=== PATIENT | female | born 1955 | race Caucasian/White ===

== ENCOUNTER 2017-03-31 15:04 | Inpatient (IN) | payer OTHER, MEDICAID ==
[2017-03-31] MEDS ORDERED: NS 1,000 ML IV ONE (15:18)
--- NOTE | 2017-03-31 15:41 | CPEKG ---
Heart Rate: 93 RR Interval: 645 P-R Interval: 140 QRSD Interval: 114 QT Interval: 368 QTC Interval: 458 P [place]: 78 QRS [place]: 113 T Wave [place]: -1 EKG Severity - ABNORMAL ECG - EKG Impression: SINUS RHYTHM EKG Impression: PROBABLE LEFT ATRIAL ABNORMALITY EKG Impression: NONSPECIFIC INTRAVENTRICULAR CONDUCTION DELAY EKG Impression: MINIMAL ST DEPRESSION Electronically Signed By: Lupillo Pa 02-Apr-2017 12:52:01
--- NOTE | 2017-03-31 15:44 | EDPHY ---
HPI/HX/ROS/PE/MDM Narrative: CHIEF COMPLAINT: Abnormal EKG, hypoxia HPI: The patient is a 61-year-old female with a history of developmental delay. She was since the emergency department after being evaluated at [facility] just prior to arrival. History is somewhat limited from the patient secondary to her developmental delay. History is primarily obtained from her spinning mule tender who states that the patient was hospitalized before [place] [facility] for pneumonia. Since that time she has had episodes of hypoxia which her primary physician has struggled to diagnose. She was referred to Cardiology for further workup. At the cardiology clinic, the patient was apparently noted to have oxygen level on room air in the 70s and abnormal EKG. She was then transferred directly to the hospital. No apparent recent trauma or fever. REVIEW OF SYSTEMS: Aside from elements discussed in the HPI, a comprehensive 10-point review of systems was reviewed and is negative. This is obtained primarily from caregiver. PMH: Includes developmental delay, recent pneumonia. No known heart disease. SOCIAL HISTORY: Lives in a host at home. Disabled. PHYSICAL EXAM: General:Patient is alert, in no acute distress. She appears somewhat pale. ENT:Eyes are normal to inspection. ENT inspection normal. Neck: Normal inspection. Full range of motion. Respiratory:No respiratory distress. Breath sounds normal bilaterally. Cardiovascular: Tachycardic rate with a possible S3 or murmur. Strong peripheral pulses. Abdomen:The abdomen is nontender to palpation. There are no peritoneal signs. There are normal bowel sounds. Back: Normal to inspection. No tenderness to palpation. Skin: Normal color. No rash. Warm and dry. Extremities: Normal appearance. Full range of motion. Neuro: Normal motor function. Normal sensory function. ED Course: EKG reveals normal sinus rhythm with T-wave inversions throughout the precordium and mild diffuse ST depression. Initial IV was attempted but was unsuccessful. Patient then refused any further attempts or testing. Nursing staff made multiple attempts to contact [facility], and finally reached her, who gave verbal permission to the nurse for us to treat the patient, even against the patient's will. 1700: Another attempt by nurse to draw blood was made, and patient refused. Given that her BP is currently stable, we will give her 1mg PO ativan and re- attempt. If this fails, we will likely have to restrain patient to get blood and IV as I am concerned regarding possible serious etiologies of her presentation, including possible severe anemia. 1905: Spoke with hospitalist service. Dr. Perez accepts admission. MDM: This patient presents with symptomatic anemia, hypoxia and an abnormal ECG. The patient's history is somewhat difficult to obtain and at this point I do not have a unifying diagnosis. Clearly she requires admission to the hospital for further workup and treatment. - Data Points Imaging Results: Imaging Impressions Chest X-Ray 03/31/17 15:42 Impression: 1. Large hiatal hernia. 2. Patchy infiltrate suspected mid to lower lungs small effusions. Consider mild fluid overload/CHF versus possibility of pneumonia.. Laboratory Results: Laboratory Results 03/31/17 18:00 03/31/17 18:00 03/31/17 03/31/17 03/31/17 18:00 18:00 18:00 WBC RBC Hgb Hct MCV MCH MCHC RDW Plt Count MPV Neut % (Auto) Lymph % (Auto) [place] % (Auto) Eos % (Auto) Baso % (Auto) Nucleat RBC Rel Count Absolute Neuts (auto) Absolute Lymphs (auto) Absolute Monos (auto) Absolute Eos (auto) Absolute Basos (auto) Absolute Nucleated RBC Immature Gran % Immature Gran # PT INR APTT Sodium 142 mEq/L mEq/L (135-145) Potassium 4.7 mEq/L mEq/L (3.5-5.2) Chloride 104 mEq/L mEq/L (97-110) Carbon Dioxide 22 mEq/l mEq/l (22-31) Anion Gap 16 mEq/L mEq/L (8-16) BUN 13 mg/dL mg/dL (7-23) Creatinine 0.9 mg/dL mg/dL (0.6-1.0) Estimated GFR > 60 Glucose 119 mg/dL H mg/dL (70-100) Calcium 9.7 mg/dL mg/dL (8.5-10.4) Troponin I 0.015 ng/mL ng/mL (0.000-0.034) NT-Pro-B Natriuret Pep 4550 pg/mL H pg/mL (0-125) Patient ABO/Rh Pending Antibody Screen Pending 03/31/17 03/31/17 18:00 18:00 WBC 8.69 10^3/uL 10^3/uL (3.80-9.50) RBC 3.02 10^6/uL L 10^6/uL (4.18-5.33) Hgb 7.4 g/dL L g/dL (12.6-16.3) Hct 25.4 % L % (38.0-47.0) MCV 84.1 fL fL (81.5-99.8) MCH 24.5 pg L pg (27.9-34.1) MCHC 29.1 g/dL L g/dL (32.4-36.7) RDW 19.3 % H % (11.5-15.2) Plt Count 305 10^3/uL 10^3/uL (150-400) MPV 10.9 fL fL (8.7-11.7) Neut % (Auto) 69.5 % % (39.3-74.2) Lymph % (Auto) 16.2 % % (15.0-45.0) [place] % (Auto) 12.3 % % (4.5-13.0) Eos % (Auto) 0.9 % % (0.6-7.6) Baso % (Auto) 0.8 % % (0.3-1.7) Nucleat RBC Rel Count 0.0 % % (0.0-0.2) Absolute Neuts (auto) 6.03 10^3/uL 10^3/uL (1.70-6.50) Absolute Lymphs (auto) 1.41 10^3/uL 10^3/uL (1.00-3.00) Absolute Monos (auto) 1.07 10^3/uL H 10^3/uL (0.30-0.80) Absolute Eos (auto) 0.08 10^3/uL 10^3/uL (0.03-0.40) Absolute Basos (auto) 0.07 10^3/uL 10^3/uL (0.02-0.10) Absolute Nucleated RBC 0.00 10^3/uL 10^3/uL (0-0.01) Immature Gran % 0.3 % % (0.0-1.1) Immature Gran # 0.03 10^3/uL 10^3/uL (0.00-0.10) PT 13.7 SEC SEC (12.0-15.0) INR 1.03 (0.83-1.16) APTT Pending Sodium Potassium Chloride Carbon Dioxide Anion Gap BUN Creatinine Estimated GFR Glucose Calcium Troponin I NT-Pro-B Natriuret Pep Patient ABO/Rh Antibody Screen Medications Given: Discontinued Medications Sodium Chloride (Ns) 1,000 mls @ 0 mls/hr IV EDNOW ONE; Wide Open PRN Reason: Protocol Stop: 03/31/17 15:19 Last Admin: 03/31/17 18:13 Dose: 1,000 mls Lorazepam (Ativan) 1 mg PO EDNOW ONE Stop: 03/31/17 17:08 Last Admin: 03/31/17 17:11 Dose: 1 mg General Time Seen by Provider: 03/31/17 15:11 Initial Vital Signs: Initial Vital Signs Temperature (C) 37.2 C 03/31/17 15:12 Heart Rate 86 03/31/17 15:12 Respiratory Rate 20 03/31/17 15:12 Blood Pressure 121/86 H 03/31/17 15:12 O2 Sat (%) 92 03/31/17 15:12 O2 Delivery Mode Room Air O2 (L/minute) 2 Allergies/Adverse Reactions: No Known Allergies Allergy (Unverified 03/31/17 15:08) Home Medications: Medication Instructions Recorded Aspirin [Aspirin 81mg (*)] 81 mg PO DAILY 03/31/17 Docusate Sodium [Colace 100 MG (*)] 100 mg PO BID 03/31/17 Gabapentin [Neurontin 400 MG (*)] 400 mg PO TID 03/31/17 Multivitamins [Multivitamin (*)] 1 each PO DAILY 03/31/17 OLANZapine [Zyprexa] 15 mg PO HS 03/31/17 OXcarbazepine [Trileptal 300mg (*)] 300 mg PO TID 03/31/17 QUEtiapine FUMARATE [Seroquel 200 200 mg PO HS 03/31/17 mg (*)] Ranitidine HCl 150 mg PO BID 03/31/17 Departure - Departure Disposition: [facility] Clinical Impression: Hypoxemia Anemia Qualifiers: Anemia type: other cause Other causes of anemia: other cause, not classified Qualified Code(s): D64.89 - Other specified anemias Condition: Fair
[2017-03-31] MEDS ORDERED: LORazepam 1 MG TAB ONE (17:07)
[2017-03-31] MEDS ORDERED: LORazepam 1 MG TAB PO ONE (17:07)
[2017-03-31 18:18] LABS: PLATELET COUNT 305 10^3/uL (150-400)
[2017-03-31 18:27] LABS: INR 1.03 (0.83-1.16); PROTIME(PATIENT) 13.7 SEC (12.0-15.0)
[2017-03-31] MEDS ORDERED: ASPIRIN 325 MG TAB PO ONE (19:37)
[2017-03-31] MEDS ORDERED: ALBUTEROL 3 ML DEYVIAL IH PRN (19:41)
[2017-03-31] MEDS ORDERED: ACETAMINOPHEN 325 MG TAB PO PRN (19:41)
[2017-03-31] MEDS ORDERED: ONDANSETRON DISINTEGRATING 4 MG TAB PO PRN (19:41)
[2017-03-31] MEDS ORDERED: ONDANSETRON 4 MG/2 ML VIAL IVP PRN (19:41)
[2017-03-31] MEDS ORDERED: FUROSEMIDE 20 MG/2 ML VIAL IVP ONE (21:11)
--- NOTE | 2017-03-31 21:17 | PDGENHP ---
History and Physical - Chief Complaint abnormal EKG - History of Present Illness 61 yo female with DD was seen for initial encounter at [facility] today for hypoxemia following recent hospitalization ([place]) at another hospital for pneumonia. History is limited as the patient is a poor historian and therefore hx is obtained from the medical records and from the photographic technician of the facility where she is residing. apparently she has been hypoxic since leaving [place] several weeks ago but they have not been able to set her up with home O2. She is currently needing 2 L. As part of her w/u she was sent to [facility] to r/ o CV etiology as she also reports intermittent leg edema. A CXR todays showed ST depression in the anterior lateral leads. She denies chest pain or discomfort , arm pain, neck pain, or jaw/face numbness. A troponin was unremarkable. There are no previous records for comparison. It is unclear if she was given an aspirin at [facility], she did not get one here. Hgb was also found to be decreased. VSS she does not have hypotension or tachycardia PMHx: DDD PSHx: unknown SHx: negative tobacco or ETOH or illicits FmHx: unknown lab/data: Hgb 7.4, MCV 84 BNP 4550 CXR mild fluid overload trop: unremarkable BMP unremarkable History Information - Allergies/Home Medication List Allergies/Adverse Reactions: No Known Allergies Allergy (Unverified 03/31/17 15:08) Home Medications: Aspirin [Aspirin 81mg (*)] 81 mg PO DAILY 03/31/17 [Last Taken 03/31/17] Docusate Sodium [Colace 100 MG (*)] 100 mg PO BID 03/31/17 [Last Taken 03/31/17] Gabapentin [Neurontin 400 MG (*)] 400 mg PO TID 03/31/17 [Last Taken 03/31/17 19 :00] Multivitamins [Multivitamin (*)] 1 each PO DAILY 03/31/17 [Last Taken 03/31/17] OLANZapine [Zyprexa] 15 mg PO HS 03/31/17 [Last Taken 03/31/17] OXcarbazepine [Trileptal 300mg (*)] 300 mg PO TID 03/31/17 [Last Taken 03/31/17 19:00] QUEtiapine FUMARATE [Seroquel 200 mg (*)] 200 mg PO HS 03/31/17 [Last Taken ] Ranitidine HCl 150 mg PO BID 03/31/17 [Last Taken 03/31/17 19:00] I have personally reviewed and updated: medical history, social history - Social History Smoking Status: Never smoked Review of Systems Review of Systems: ROS: 10pt was reviewed & negative except for what was stated in HPI & below Physical Exam Physical Exam: Temp Pulse Resp BP Pulse Ox 37.2 C 84 20 105/65 100 03/31/17 15:12 03/31/17 19:44 03/31/17 19:44 03/31/17 19:44 03/31/17 19:44 O2 (L/minute) 2 Constitutional: no apparent distress, appears nourished Eyes: PERRL Ears, Nose, Mouth, Throat: moist mucous membranes, hearing normal Cardiovascular: regular rate and rhythym, systolic murmur, edema (trace), No JVD Respiratory: no respiratory distress, rhonchi Gastrointestinal: normoactive bowel sounds, soft, non-tender abdomen, no palpable masses Genitourinary: no bladder fullness Skin: warm Musculoskeletal: generalized weakness Neurologic: No AAOx3 Psychiatric: interacting appropriately, encephalopathic, No not anxious Lymph, Heme, Immunologic: No petechiae Lab Data & Imaging Review 03/31/17 18:00 03/31/17 18:00 WBC 8.69 10^3/uL (3.80-9.50) 03/31/17 18:00 RBC 3.02 10^6/uL (4.18-5.33) L 03/31/17 18:00 Hgb 7.4 g/dL (12.6-16.3) L 03/31/17 18:00 POC Hgb 5.4 gm/dL (12.6-16.3) L* 03/31/17 15:50 Hct 25.4 % (38.0-47.0) L 03/31/17 18:00 POC Hct 16 % (38-47) L* 03/31/17 15:50 MCV 84.1 fL (81.5-99.8) 03/31/17 18:00 MCH 24.5 pg (27.9-34.1) L 03/31/17 18:00 MCHC 29.1 g/dL (32.4-36.7) L 03/31/17 18:00 RDW 19.3 % (11.5-15.2) H 03/31/17 18:00 Plt Count 305 10^3/uL (150-400) 03/31/17 18:00 MPV 10.9 fL (8.7-11.7) 03/31/17 18:00 Neut % (Auto) 69.5 % (39.3-74.2) 03/31/17 18:00 Lymph % (Auto) 16.2 % (15.0-45.0) 03/31/17 18:00 [place] % (Auto) 12.3 % (4.5-13.0) 03/31/17 18:00 Eos % (Auto) 0.9 % (0.6-7.6) 03/31/17 18:00 Baso % (Auto) 0.8 % (0.3-1.7) 03/31/17 18:00 Nucleat RBC Rel Count 0.0 % (0.0-0.2) 03/31/17 18:00 Absolute Neuts (auto) 6.03 10^3/uL (1.70-6.50) 03/31/17 18:00 Absolute Lymphs (auto) 1.41 10^3/uL (1.00-3.00) 03/31/17 18:00 Absolute Monos (auto) 1.07 10^3/uL (0.30-0.80) H 03/31/17 18:00 Absolute Eos (auto) 0.08 10^3/uL (0.03-0.40) 03/31/17 18:00 Absolute Basos (auto) 0.07 10^3/uL (0.02-0.10) 03/31/17 18:00 Absolute Nucleated RBC 0.00 10^3/uL (0-0.01) 03/31/17 18:00 Immature Gran % 0.3 % (0.0-1.1) 03/31/17 18:00 Immature Gran # 0.03 10^3/uL (0.00-0.10) 03/31/17 18:00 PT 13.7 SEC (12.0-15.0) 03/31/17 18:00 INR 1.03 (0.83-1.16) 03/31/17 18:00 APTT 20.0 SEC (23.0-38.0) L 03/31/17 18:00 POC Sodium 144 mEq/L (135-145) 03/31/17 15:50 Sodium 142 mEq/L (135-145) 03/31/17 18:00 POC Potassium 3.6 mEq/L (3.3-5.0) 03/31/17 15:50 Potassium 4.7 mEq/L (3.5-5.2) 03/31/17 18:00 POC Chloride 99 mEq/L (97-110) 03/31/17 15:50 Chloride 104 mEq/L (97-110) 03/31/17 18:00 Carbon Dioxide 22 mEq/l (22-31) 03/31/17 18:00 Anion Gap 16 mEq/L (8-16) 03/31/17 18:00 POC BUN 10 mg/dL (7-23) 03/31/17 15:50 BUN 13 mg/dL (7-23) 03/31/17 18:00 Creatinine 0.9 mg/dL (0.6-1.0) 03/31/17 18:00 POC Creatinine 0.7 mg/dL (0.6-1.0) 03/31/17 15:50 Estimated GFR > 60 03/31/17 18:00 Glucose 119 mg/dL (70-100) H 03/31/17 18:00 POC Glucose 91 mg/dL (70-100) 03/31/17 15:50 Calcium 9.7 mg/dL (8.5-10.4) 03/31/17 18:00 Troponin I 0.015 ng/mL (0.000-0.034) 03/31/17 18:00 NT-Pro-B Natriuret Pep 4550 pg/mL (0-125) H 03/31/17 18:00 Procalcitonin 0.05 ng/mL (0.02-0.10) 03/31/17 18:00 Patient ABO/Rh A NEGATIVE 03/31/17 18:00 Antibody Screen NEGATIVE 03/31/17 18:00 Assessment & Plan Assessment: #Hypoxemia and OSBORN #abnormal EKG with no cp and unremarkable EKG #?CHF with mild exacerbation #Anemia, normocytic, likely not acute, no reported melena #DD Plan: Admit PCU Lasix x 1 TTE Telemetry Serial trops Resp panel Full dose aspirin now, cont daily aspirin Check for risk factors It is unclear if Cards is following. We will need to contact them in the a.m.. Thus far she does not have any chest pain and trops are negative. M anemia w/u SCDs Full code
[2017-04-01] MEDS: QUEtiapine FUMARATE 200 MG TAB PO SCH ×2 (00:48→20:46)
[2017-04-01] MEDS: DOCUSATE SODIUM 100 MG CAP PO SCH ×3 (00:48→20:57)
[2017-04-01] MEDS: FAMOTIDINE 20 MG TAB PO SCH ×3 (00:48→20:58)
[2017-04-01] MEDS: GABAPENTIN 400 MG CAP PO SCH ×4 (00:49→20:46)
[2017-04-01] MEDS: OXcarbazepine 300 MG TAB PO SCH ×4 (00:49→20:46)
[2017-04-01 05:35] LABS: PLATELET COUNT 284 10^3/uL (150-400)
[2017-04-01] MEDS: MULTIVITAMINS 1 EACH TAB PO SCH (09:56)
[2017-04-01] MEDS: ASPIRIN 81 MG CHEWABLE TAB PO SCH (09:56)
[2017-04-01] MEDS ORDERED: SODIUM FERRIC GLUCONAT/SUCROSE 125 MG in NS 100 ML IV ONE (11:15)
--- NOTE | 2017-04-01 11:44 | ECHO ---
[email or web address] [address] Main: [phone] Fax: Transthoracic Echocardiogram Name: DERRELL MELTON MR#: [id number] Study Date: 04/01/2017 Study Time: 09:28 AM Date of : 1955 Age: 61 year(s) Height: 154.9 cm (61 in.) Weight: 65.77 kg (145 lb.) BSA: 1.65 m2 Gender: Female Examination: Echo Indication: abnormal ecg Image Quality: Adequate Contrast: Requested by: Alessandro Perez BP: 133 mmHg/92 mmHg Heart Rate: Rhythm: Normal sinus rhythm Indication: abnormal ecg Procedure Staff Medical Library Assistant: Cheyenne Salguero [facility] Reading Physician: Lupillo Allen Requesting Provider: Conclusions: Normal size left ventricle. Borderline concentric LV hypertrophy. EF is 74 %. Mildly dilated right ventricle. Mildly reduced RV function. The mitral valve is normal in appearance and function. Trivial mitral valve regurgitation. The aortic valve is normal in appearance and function. Right ventricular systolic pressure measures 53mmHg. No old studies for comparison. Measurements: Chambers Valvular Assessment AV/MV Valvular Assessment TV/PV Normal Normal Normal Name Value Range Name Value Range Name Value Range IVSd (2D): 1.0 cm (0.6 cm-1.1 AV Vmax: 1.69 m/s (1 m/s-1.7 TR Vmax: 3.47 mm/s ( - ) cm) m/s) TR PGmax: 48 mmHg ( - ) LVDd (2D): 4.1 cm (3.9 cm-5.3 AV maxP mmHg ( - ) syst. PAP: 53 mmHg ( - ) cm) LVOT Vmax: 1.30 m/s (0.7 m/s-1.1 PV Vmax: 1.10 m/s (0.6 m/s-0.9 LVDs (2D): 2.9 cm (2.1 cm-4 m/s) m/s) cm) MV E Vmax: 0.72 m/s ( - ) PV PGmax: 5 mmHg ( - ) LVPWd (2D): 1.0 cm ( - ) MV A Vmax: 1.04 m/s ( - ) LVEF (BP): 74 % (>=55 %) MV E/A: 0.69 ( - ) RVDd(2D): 4.0 cm (1.9 cm-3.8 cmmm) Continued Measurements: Chambers Valvular Assessment AV/MV Valvular Assessment TV/PV Patient: DERRELL MELTON Study Date: 04/01/2017 Page 1 of 2 09:28 AM Name Value Name Value Name Value LADs Lon.5 cm MV DecTime: 303 m/s CVP (est.): 5 mmHg LA Area: 17.9 cm2 MV E' Septal: 0.06 m/s LA Volume: 39 ml MV E/E' Septal: 11.30 LA Volume Index: 23.6 ml/m2 MV E/E' Lateral: 5.60 TAPSE: 1.6 cm Additional Vessels Name Value Ao Ascendin.1 cm Findings: Left Ventricle: Normal size left ventricle. Borderline concentric LV hypertrophy. Normal global systolic LV function. EF is 74 %. There is paradoxic septal motion suggestive of bundle branch block, paced cardiac rhythm, or prior cardiac surgery. Normal diastolic LV function. Right Ventricle: Mildly dilated right ventricle. Mildly reduced RV function. Left Atrium: The left atrium is normal in size. Right Atrium: The right atrium is normal in size. Mitral Valve: The mitral valve is normal in appearance and function. Trivial mitral valve regurgitation. No mitral stenosis is present. Aortic Valve: The aortic valve is normal in appearance and function. There is no significant aortic valve regurgitation. No aortic valve stenosis is present. Tricuspid Valve: The tricuspid valve is normal in appearance and function. Mild tricuspid regurgitation is present. Right ventricular systolic pressure measures 53mmHg. The pulmonary artery pressure is moderately increased. Pulmonic Valve: The pulmonic valve is normal in appearance and function. Trivial to mild pulmonic valve regurgitation. Aorta: The aorta is normal. Normal size ascending aorta measuring 3.1 cm. IVC: The IVC is normal sized. Pericardium: No pericardial effusion. (No Signature Object) Patient: DERRELL MELTON Study Date: 04/01/2017 Page 2 of 2 09:28 AM [id number]
--- NOTE | 2017-04-01 14:33 | HOSPPROG ---
Hospitalist Progress Note Assessment/Plan: DIAGNOSES: -severe symptomatic anemia with severe iron deficiency, unknown chronicity but significant decrease in hemoglobin overnight here; strongly suggest GI malignancy or other GI lesion -acute hypoxemic respiratory failure -left-sided pleural effusion -severe pulmonary hypertension and 50s; reportedly no smoking or previous lung history, wonder if she could potentially have a PE; no valvular cause identified on echocardiogram; chest rate does not look like COPD -recent pneumonia diagnosed at another hospital and treated there discharge 2 weeks ago -history of hip fracture and therefore osteoporosis is suspected -developmental delay is suspected but no specific information available, patient lives in a host home -patient apparently has a POA but the patient states that this woman is not welcome in her room and is not on speaking terms with this person Initially the patient was very adamant that she is going to leave the hospital and does not want any further care here including any new medications, any transfusions, any further diagnostic assessment. She is quite anxious and it appears this is in part due to her developmental delay and for most likely underlying anxiety disorder. I did discuss with her her situation in detail and carefully reviewed that she actually has significant risks and a potentially life-threatening situation at this time. I did review with her that particularly with a decreasing hemoglobin at 6 and respiratory failure she is at risk for severe acute complications including potentially . I did review with her as well that she has pulmonary hypertension that severe we do not have a cause for this identified yet. I let the patient think about these things for a while and left her upon to them on her own. I did come back and review with her later and the patient's is now amenable to transfusion and would like us to treat her aggressively at this point. She is accepting some IV iron She would like us to discuss this with her family and help her discuss with her family and will do of thing we can. I did introduce her to our case supervisor who will can be of assistance. In addition will need to find more out about her POA and why she is not wanting the POA to be involved at this point. It may be that we need to have her get a different POA or somehow name a different surrogate decision maker. I reviewed the patient's condition and care plan in detail today with Dr. Roly Lehman and Dr. Jonathan Perez PLANS: -the patient is now agreeing to 1 U of red blood cell transfusion I have ordered that, I spoke suspect she will need more -proton pump inhibitors added -I have also ordered some iron IV -I have asked Dr. Roly Lehman to see the patient for endoscopic evaluation -continue respiratory support -will further discuss with her getting a CT pulmonary angiogram to assess for possible pulmonary emboli as cause of pulmonary hypertension -will try and get records from previous hospitals to get better information about her past illnesses SUBJECTIVE: Patient still with some dyspnea OBJECTIVE Vitals reviewed: House Carpenter Helper, my review: Exam: alert oriented skin warm dry color ok resps not labored lungs clear BSs heart regular abd soft nondistended nontender, bowel sounds present limbs warm, no edema iv site ok Labs reviewed in detail. She is severely iron deficient and more severely anemic than yesterday. She does not have a coagulopathy Objective: Vital Signs Temp Pulse Resp BP Pulse Ox 36.9 C 80 20 105/58 L 95 04/01/17 11:55 04/01/17 11:55 04/01/17 11:55 04/01/17 11:55 04/01/17 11:55 Microbiology 04/01/17 03:15 Respiratory Panel (PCR) - Final Nasal, Sinus - Swab No Organism Detected Laboratory Results 04/01/17 04:40 04/01/17 04:40 03/31/17 04/01/17 04/02/17 06:59 06:59 06:59 Intake Total 600 120 Output Total 1150 550 Balance -550 -430 PT 13.7 SEC (12.0-15.0) 03/31/17 18:00 INR 1.03 (0.83-1.16) 03/31/17 18:00 - Time Spent With Patient Time Spent with Patient: greater than 35 minutes Time Spent with Patient: Greater than 35 minutes spent on this patients care, greater than 50% of time spent counseling, educating, and coordinating care regarding the above mentioned plan. ICD10 Worksheet Patient Problems: Problems Problem Status Onset Anemia Acute Hypoxemia Acute
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
--- NOTE | 2017-04-01 17:33 | GCON ---
[f rep st] CONSULTATION GASTROINTESTINAL INPATIENT CONSULTATION DATE OF CONSULTATION: 04/01/2017 I was kindly requested to see the patient by Dr. Scottie Sanchez in consultation for a chief complaint of anemia. HISTORY OF PRESENT ILLNESS: She is a 61-year-old white female, who was admitted to the hospital with mild heart failure. She was found to have a hemoglobin of 6.5 and hematocrit 22.4%. She states she has been anemic since age 15. She denies melena. She denies bright red blood per rectum. She denies maroon stool. She denies any recent surgery. For the most part, she denies diarrhea. She is a somewhat poor historian. She underwent colonoscopy 4 years ago, according to the patient. She states some benign polyps were removed. She had nausea with the sedation, and states "I will never do that again." PAST MEDICAL HISTORY: 1. As above. 2. Apparent recent pneumonia at [facility][1]. 3. Psychiatric disorder. 4. Otherwise, noncontributory. INPATIENT MEDICATIONS: Include Trileptal, olanzapine, Seroquel, Neurontin, aspirin. ALLERGIES: No known drug allergies. SOCIAL HISTORY: She denies tobacco use. FAMILY HISTORY: Negative for similar anemia. REVIEW OF SYSTEMS: Positive pertinent review of systems as per my HPI. Otherwise, complete review of systems is negative. PHYSICAL EXAM: CONSTITUTIONAL: Chronically ill-appearing woman. VITAL SIGNS: Stable. SKIN: Warm, dry. EYES: Pupils equal, round, reactive to light and accommodation. EAR, NOSE, MOUTH AND THROAT: Oropharynx without masses, moist mucosa. CARDIOVASCULAR: Normal S2, normal PMI. RESPIRATORY: Lungs clear to auscultation and percussion anteriorly. GASTROINTESTINAL: Abdomen soft, nontender. NEUROLOGIC: Grossly nonfocal, with cranial nerves grossly intact. PSYCHIATRIC: Alert. Appears schizophrenic. MUSCULOSKELETAL: Strength grossly normal throughout, normal station. LABORATORIES: Include the above. Normal basic metabolic panel. Normal coags. Iron saturation 4% with a normal ferritin. Normal TSH. Normal folate, B12. MCV 83. ASSESSMENT: Anemia, somewhat profound, with a low iron saturation. Otherwise, normal MCV, normal ferritin. Certainly, a gastrointestinal source is possible, such as stomach cancer, peptic ulcer disease, arteriovenous malformation, colon cancer, etc. PLAN: 1. I discussed with her and her home caregiver, pursuing upper endoscopy and colonoscopy. I reassured her that it would be unlikely for her to get nausea from the particular sedation we would use. All of her questions were answered. However, despite the above, she does not wish to proceed. She understands the risks of her decision, such as missing a colon cancer, etc. 2. Otherwise, further management, such as IV iron, blood transfusion, oral iron , etc., as per the hospitalist service. I will sign off. Please contact me in the future, if the patient changes her mind, and wishes to proceed with the above. Otherwise, thank you for allowing me to help in the management of the patient. /[id number]/MODL MTDD
[2017-04-01] MEDS: OLANZapine 10 MG TAB PO SCH (20:46)
--- NOTE | 2017-04-01 21:38 | GCON ---
[f rep st] CONSULTATION CARDIOLOGY CONSULTATION DATE OF CONSULTATION: 04/01/2017 HISTORY OF PRESENT ILLNESS: The patient is a pleasant 61-year-old female with a known history of schizophrenia, cerebral palsy, who was recently hospitalized at [facility] for pneumonia. Apparently, she refused initial treatment with antibiotics secondary to the fact that she did not want to take pills. She ultimately was agreeable for medical therapy. She reports that she did complete a course of antibiotics but felt that they were not helpful. She states she had ultimately presented to [facility] because she had an increasing cough that became more bothersome, that had been present for 2 months prior to her hospitalization. She has no known history of underlying lung disease. She has been a lifelong nonsmoker. She was ultimately discharged from [facility] and was seen at her family physician at [facility]. She was referred to [facility] for further evaluation of an abnormal ECG with T-wave inversions reported. She was seen on March 31, 2017, at [facility] by Nanci Rodriguez PA-C. Her ECG was notable for a sinus rhythm with right bundle branch block and T-wave inversions in the right precordial leads in V1 through V4. No previous ECG for comparison. She was found to be hypoxic on room air with an oxygen saturation of 76%, prompting her presentation to [facility] where she was admitted. She did undergo complete 2D echocardiogram earlier today demonstrating normal left ventricular size and function. Her right ventricular cavity was dilated with mildly reduced right ventricular function, with moderate pulmonary hypertension with RV systolic pressure of 53 mmHg. Of note, she was also found to be markedly anemic with a hemoglobin of 6.5 and hematocrit of 22.5. BNP is elevated at 4580. Chest x-ray demonstrated potential infiltrate with small effusions versus pneumonia. Currently, at the time of my exam, she is resting comfortably. She is rather anxious. She states she no longer wants to stay in the hospital, is looking forward to leaving and ultimately returning to [place]. PAST MEDICAL HISTORY: As stated above. MEDICATIONS ON ADMISSION: Include aspirin, docusate, gabapentin 400 mg 1 tablet t.i.d., olanzapine 50 mg daily, ProAir 90 mcg 1 puff q.4-6 hours. She is also on quetiapine 200 mg extended release once b.i.d., and ranitidine 150 mg daily. ALLERGIES TO MEDICATIONS: None. FAMILY HISTORY: No significant family history of premature coronary artery disease. SOCIAL HISTORY: She currently lives with a process improvement manager in [place]. She is anxious to return to [place]. She is a lifelong nonsmoker. She does not use illicit drugs. She does not drink alcohol. PHYSICAL EXAMINATION: VITAL SIGNS: Blood pressure 105/58, heart rate 80, oxygen saturation 95% on room air, respiratory rate 20, temperature 36.9. GENERAL: She is awake, alert, oriented and appropriate. She responds appropriately to questions. NECK: There is no evidence of JVP or carotid bruits. LUNGS: Clear to auscultation bilaterally. CARDIAC: S1, S2. Regular rate and rhythm. No murmurs, rubs, or gallops. EXTREMITIES: She has trace ankle edema. Her ankles are tender to palpation. She states she has had ankle edema since her early 20s, which is unchanged. DATA: Echocardiogram demonstrates LVEF of 74%, borderline LVH. There is mild reduction in RV function and mildly dilated right ventricle, with moderate pulmonary hypertension with RV systolic pressure of 53 mmHg. No significant valvular disease. Mild tricuspid regurgitation. EKG demonstrates sinus rhythm with right bundle branch block and T-wave inversions in leads V1 to V4. White blood cell count 7.87, hemoglobin of 6.5, hematocrit of 22.4, platelets 284. Sodium 140, potassium 4.4, chloride 101, bicarb 28, BUN 14, creatinine 1, glucose 111. Hemoglobin A1c 5.2, magnesium 2.0. Troponin initially 0.015, 2nd troponin 0.012, N-terminal proBNP 4550. TSH 2.66. IMPRESSION: 1. Moderate pulmonary hypertension. 2. Severe anemia. 3. Hypoxia in [facility] office yesterday. 4. Underlying schizophrenia. SUMMARY: The patient is a pleasant 61-year-old female, with recent history of progressive cough, shortness of breath, found to have pneumonia, initially refused therapy, but ultimately did complete a course of antibiotics. She feels that this is not helpful for her cough. She was found to have abnormal ECG, presented to [facility] yesterday and found to have a room air oxygen saturation of 76%, prompting her admission to [facility]. No evidence of acute infarction with serial troponins negative x2. Right heart is clearly strained. This is most likely a combination of her underlying pneumonia , cough, and anemia. Chest x-ray demonstrates findings consistent with small effusions versus pneumonia, and there is evidence of patchy infiltrate. PLAN: I would recommend the followin. CTA to rule out pulmonary emboli. 2. Patient will need ongoing workup for underlying anemia. 3. Consider outpatient evaluation for sleep apnea. 45 minutes spent coordinating care /[id number]/MODL MTDD
[2017-04-02 04:29] LABS: PLATELET COUNT 280 10^3/uL (150-400)
[2017-04-02 04:44] LABS: INR 1.18 (0.83-1.16); PROTIME(PATIENT) 15.2 SEC (12.0-15.0)
--- NOTE | 2017-04-02 09:05 | PDMN ---
Medical Necessity Medical necessity: change to IP; los>2mn for severe symptomatic anemia w/severe iron deficiency, suspected GI bleeding, acute hypoxemic resp failure, pulm htn, and acute right sided heart failure; requires transfusion, IV iron, GI consult; comorbid developmental delay, recent PNA; per order and progress note 04/01/17
[2017-04-02] MEDS: DOCUSATE SODIUM 100 MG CAP PO SCH ×2 (12:01→20:01)
[2017-04-02] MEDS: GABAPENTIN 400 MG CAP PO SCH ×3 (12:01→20:04)
[2017-04-02] MEDS: ASPIRIN 81 MG CHEWABLE TAB PO SCH (12:01)
[2017-04-02] MEDS: MULTIVITAMINS 1 EACH TAB PO SCH (12:01)
[2017-04-02] MEDS: FAMOTIDINE 20 MG TAB PO SCH ×2 (12:01→20:02)
[2017-04-02] MEDS: OXcarbazepine 300 MG TAB PO SCH ×3 (12:02→20:04)
--- NOTE | 2017-04-02 15:23 | ASMTCMCOM ---
CM Note CM Note Notes: Discussed pts case in morning rounds. Pt is threatening to leave AMA. CM spoke w/ Marilyn Montelongo and she is unable to consult on case today because she is not working. Dr. Sanchez has deemed pt gravely disabled and completed the M1 hold form. CM has been coordinating w/ Miriam, RN and alex Matthews RN. CM notified Elzbieta Vazquez and Lenore regarding M1 hold. CM provided Elzbieta phone number to the ICU. CM notified ICU CM of transfer. CM available for changes. Plan: Inpatient psych Date Signed: 04/02/2017 03:23 PM Electronically Signed By:PARTH Emerson
--- NOTE | 2017-04-02 16:13 | HOSPPROG ---
Hospitalist Progress Note Assessment/Plan: DIAGNOSES: -severe symptomatic anemia with severe iron deficiency, unknown chronicity but significant decrease in hemoglobin overnight here; strongly suggest GI malignancy or other GI lesion -acute hypoxemic respiratory failure now resolved -left-sided pleural effusion, very small not likely symptomatic -severe pulmonary hypertension and 50s; reportedly no smoking or previous lung history, wonder if she could potentially have a PE; no valvular cause identified on echocardiogram; chest rate does not look like COPD -recent pneumonia diagnosed at another hospital and treated there discharge 2 weeks ago -history of hip fracture and therefore osteoporosis is suspected -chronic mental health illnesses, details unknown to me at this time -patient apparently has a POA but the patient states that this woman is not welcome in her room and is not on speaking terms with this person I did have a long talk on telephone with the patient's sister who his her medical guardian and her power of county attorney as well. Patient refuses to talk to this sister. I explained the scenario to the sister in detail and made recommendations. My belief is that the patient cognitively does understand her medical issues and has decisional capacity to understand them and make decisions. She is not making medical decisions that most of us would feel are appropriate or would be comfortable with, however the patient has a great fear of hospitals, great fear of procedures, great fear of anesthesia or sedation. These are all I think rooted in her life experiences and notably aggravated by her mental health issues. I think that her mental health scenario is not controlled and some of this is due to her not taking her medications which she is refusing. I think from mental health standpoint she is gravely disabled and probably warrants Behavioral Health inpatient care at this time. In terms of her medical issues the reality is at this moment none of them are really emergent or pressing. If she had no mental health issues and she were willing to follow-up on her anemia assessment and take some iron and Lasix as an outpatient she could safely be discharged medically. I do not believe that she is likely to pursue any further treatment or assessment for her anemia and edema when she is in her current mental health state. I have placed her on an M1 hold until we can get a behavioral health unit assessment. She is not suicidal. I do not think that she could be harmful to other people. If indeed Behavioral Health assess her does not agree that she needs at behavioral health unit admission then the patient could potentially be discharged from the hospital. She would be referred to primary care to review her iron deficiency anemia and her edema. If she does not manage her anemia she will continue to recurrent we have symptoms of heart failure or could have other severe complications of the anemia but she is not in danger of that happening today or in the next couple of days. She is also aware that she could have a tumor which could take her life or make her quite ill and that there is the availability of removing that. It is up to her to decide whether she wants to investigate or treat that or not. She is being moved to the intensive care unit on M1 hold and we are awaiting a mental health evaluation. SUBJECTIVE: Today the patient was refusing to answer questions for me, was adamant that she was going to leave, demanding to have her IV catheter removed saying that she could not stay at this hospital and would not stay at this hospital. She has been refusing most of her multiple daily doses of psychiatric medications for the last 2 days. She has been refusing other medications, initially refusing lab draws lab draws, and not willing to work with the nursing staff today. She was visited yesterday by Dr. Lehman of Gastroenterology who had recommended endoscopic evaluation for her iron deficiency anemia, but she declined to engage in any further evaluation endoscopically or otherwise for that. She is very angry today but when I ask her specifically if there is a particular thing she was angry about here at the hospital the only thing she would tell me about was that if she yelled for the nursing staff no one would come. When I told her that we did not always here her when she was yelling because we are in other rooms and that she should use her call button she stated that she could not wait for nurses to come when she pushed the button. The patient is not appearing confused, does not necessarily have any specific paranoia at this time. She is not showing any signs of hallucinations. There is no tremor. Nothing that looks like any withdrawal. OBJECTIVE Vitals reviewed: Stable without fever Lime Trimmer, my review: Sinus Exam: alert angry, not willing to answer questions for me, demanding to be released from the hospital stating she would walk out skin warm dry color ok Not willing to participate in physical examination otherwise iv site ok Objective: Vital Signs Temp Pulse Resp BP Pulse Ox 37.2 C 83 20 90/68 L 92 04/02/17 04:00 04/02/17 09:00 04/02/17 09:00 04/02/17 04:00 04/02/17 09:00 Laboratory Results 04/02/17 04:12 04/02/17 04:12 04/01/17 04/02/17 04/03/17 06:59 06:59 06:59 Intake Total 100 Output Total 300 Balance -200 PT 15.2 SEC (12.0-15.0) H 04/02/17 04:12 INR 1.18 (0.83-1.16) H 04/02/17 04:12 - Time Spent With Patient Time Spent with Patient: greater than 35 minutes Time Spent with Patient: Greater than 35 minutes spent on this patients care, greater than 50% of time spent counseling, educating, and coordinating care regarding the above mentioned plan. ICD10 Worksheet Patient Problems: Problems Problem Status Onset Anemia Acute Hypoxemia Acute
[2017-04-02] MEDS: QUEtiapine FUMARATE 200 MG TAB PO SCH (20:02)
[2017-04-02] MEDS: OLANZapine 10 MG TAB PO SCH (20:02)
[2017-04-03] MEDS: ASPIRIN 81 MG CHEWABLE TAB PO SCH (11:10)
[2017-04-03] MEDS: OXcarbazepine 300 MG TAB PO SCH ×3 (11:11→21:24)
[2017-04-03] MEDS: FAMOTIDINE 20 MG TAB PO SCH ×2 (11:11→21:25)
[2017-04-03] MEDS: DOCUSATE SODIUM 100 MG CAP PO SCH ×2 (11:11→21:25)
[2017-04-03] MEDS: GABAPENTIN 400 MG CAP PO SCH ×3 (11:11→21:25)
[2017-04-03] MEDS: MULTIVITAMINS 1 EACH TAB PO SCH (11:11)
[2017-04-03] MEDS ORDERED: LORazepam 1 MG TAB PO ONE (12:15)
[2017-04-03] MEDS: OLANZapine 10 MG TAB PO SCH (12:34)
--- NOTE | 2017-04-03 15:56 | HOSPPROG ---
Hospitalist Progress Note Assessment/Plan: -severe symptomatic anemia with severe iron deficiency, unknown chronicity but significant decrease in hemoglobin overnight here; strongly suggest GI malignancy or other GI lesion * Needs colonoscopy and EGD will have to be done outpatient -acute hypoxemic respiratory failure now resolved -left-sided pleural effusion, very small not likely symptomatic -moderate pulmonary hypertension and 50s; reportedly no smoking or previous lung history * Possible on she obstructive sleep apnea * schizophrenia * Patient had been taking medications outpatient although her mental health worker told her these were vitamins. She has completely refused medications here and has decompensated. [facility] has determined she needs inpatient psychiatric care. But I believe we can get her back to her baseline if she takes her medications. We are having some success today. If she continues taking medications will have TLC re-evaluate tomorrow and then hopefully discharge her. She will then need outpatient follow-up for EGD and colonoscopy Subjective: Is very angry this morning. Wanting to go home Objective: Vital Signs Temp Pulse Resp BP Pulse Ox 37.3 C 80 18 121/60 H 94 04/03/17 07:26 04/03/17 07:26 04/03/17 07:26 04/03/17 07:26 04/03/17 07:26 Laboratory Results 04/02/17 04:12 04/02/17 04:12 04/02/17 04/03/17 04/04/17 05:59 05:59 05:59 Intake Total 100 100 Output Total 300 400 Balance -200 -300 PT 15.2 SEC (12.0-15.0) H 04/02/17 04:12 INR 1.18 (0.83-1.16) H 04/02/17 04:12 - Time Spent With Patient Time Spent with Patient: greater than 35 minutes (According care with the nursing staff as well as with patient) Time Spent with Patient: Greater than 35 minutes spent on this patients care, greater than 50% of time spent counseling, educating, and coordinating care regarding the above mentioned plan. - Physical Exam Constitutional: no apparent distress, appears nourished, not in pain Eyes: anicteric sclera, EOMI Cardiovascular: regular rate and rhythym, no murmur, rub, or gallop Respiratory: no respiratory distress Neurologic: AAOx3 Psychiatric: other (Angry, aggressive) ICD10 Worksheet Patient Problems: Problems Problem Status Onset Anemia Acute Hypoxemia Acute
--- NOTE | 2017-04-03 17:50 | ASMTCMCOM ---
CM Note CM Note Notes: Received phonecall from ICU mine development engineer, Anna, regarding pt's dc poc. Informed pt is still on M1 hold, is currently medically stable & has been evaluated by T[facility]. Noted TLC evaluation in pt's chart from 04/02/17, recommending adult psychiatric tx. LVM for [facility] to discuss; awaiting callback. Spoke with Behaviorial Health RN, JEYSON unable to take pt at this time. Discussed dc poc with Cesia Lama CM. Per Cesia, TLC is looking into a psychiatric facility in [place]. Updated RN & MD; informed pt had been refusing psychiatric meds, but is now willing to take them. Pt will continue to be monitored & TLC will reevaluate at a later time. RN & MD hopeful pt's psychiatric meds will stabilize pt so she can return to her home at [facility]. CM will continue to follow. Dc plan: To be determined Date Signed: 04/03/2017 05:49 PM Electronically Signed By:Joy Drummond RN
[2017-04-03] MEDS ORDERED: OLANZapine DISINTEGR 10 MG TAB PO SCH (21:00)
[2017-04-03] MEDS: QUEtiapine FUMARATE 200 MG TAB PO SCH (21:25)
[2017-04-04] MEDS: GABAPENTIN 400 MG CAP PO SCH ×3 (09:39→20:58)
[2017-04-04] MEDS: OXcarbazepine 300 MG TAB PO SCH ×3 (09:39→20:57)
[2017-04-04] MEDS: MULTIVITAMINS 1 EACH TAB PO SCH ×2 (09:39→09:43)
[2017-04-04] MEDS: DOCUSATE SODIUM 100 MG CAP PO SCH ×3 (09:42→21:13)
[2017-04-04] MEDS: ASPIRIN 81 MG CHEWABLE TAB PO SCH (09:43)
[2017-04-04] MEDS: FAMOTIDINE 20 MG TAB PO SCH ×2 (09:48→20:57)
--- NOTE | 2017-04-04 12:12 | ASMTCMCOM ---
CM Note CM Note Notes: Difficult case. Spoke with Host RN who reports that patient was recently at [facility] with similar dx and was DC because patient pulled out her IV's and refused care. She reports that patient has an IQ of 65 and unable to make her own decisions. Patient will refuse care as an out-pt. Her sister, Guardian wants her to be treated and if at all possible while she is in [facility] as an in-pt. Host also very concerned about her psych needs and would like a consultation for appropriate home meds. Host reports that patient was given Ativan in ER which helped her anxiety and ability to cooperate. CM to contact [facility] legal and Ethics. Date Signed: 04/04/2017 12:12 PM Electronically Signed By:Alyssa Bolanos LCSW
--- NOTE | 2017-04-04 12:59 | HOSPPROG ---
Hospitalist Progress Note Assessment/Plan: *Severe anemia * Unclear cause * needs EGD colonoscopy * Will have to get permission from POA and hospital attorneys go ahead per GI * Start PPI * schizophrenia * Patient had been taking medications outpatient although her mental health worker told her these were vitamins. She has completely refused medications here and has decompensated. [facility] had determined she needs inpatient psychiatric care. However she is better today now that she is taking medicines. Her home health nurses that she will not be able to do an outpatient endoscopy that is better for her to it done here * moderate pulmonary hypertension Subjective: Much more sedated today Objective: Vital Signs Temp Pulse Resp BP Pulse Ox 37.9 C 91 24 H 121/60 H 79 L 04/04/17 09:33 04/04/17 09:33 04/04/17 09:33 04/03/17 07:26 04/04/17 09:33 Laboratory Results 04/02/17 04:12 04/02/17 04:12 04/03/17 04/04/17 04/05/17 05:59 05:59 05:59 Intake Total 100 240 Output Total 400 Balance -300 240 PT 15.2 SEC (12.0-15.0) H 04/02/17 04:12 INR 1.18 (0.83-1.16) H 04/02/17 04:12 - Physical Exam Constitutional: no apparent distress, appears nourished, not in pain Eyes: anicteric sclera, EOMI Neurologic: other (Little somnolent) Psychiatric: interacting appropriately ICD10 Worksheet Patient Problems: Problems Problem Status Onset Anemia Acute Hypoxemia Acute
[2017-04-04] MEDS: LORazepam 1 MG TAB PO PRN (16:50)
[2017-04-04] MEDS: OLANZapine 10 MG TAB PO SCH (20:57)
[2017-04-04] MEDS: QUEtiapine FUMARATE 200 MG TAB PO SCH (20:57)
[2017-04-04] MEDS: PANTOPRAZOLE SODIUM 40 MG TAB PO SCH (20:57)
[2017-04-05] MEDS: DOCUSATE SODIUM 100 MG CAP PO SCH ×3 (07:58→21:20)
[2017-04-05] MEDS: OXcarbazepine 300 MG TAB PO SCH ×3 (07:59→21:18)
[2017-04-05] MEDS: MULTIVITAMINS 1 EACH TAB PO SCH (07:59)
[2017-04-05] MEDS: PANTOPRAZOLE SODIUM 40 MG TAB PO SCH ×2 (07:59→21:18)
[2017-04-05] MEDS: FAMOTIDINE 20 MG TAB PO SCH (07:59)
[2017-04-05] MEDS: GABAPENTIN 400 MG CAP PO SCH ×3 (07:59→21:18)
--- NOTE | 2017-04-05 16:57 | ASMTCMCOM ---
CM Note CM Note Notes: Ethics present and spoke to patient's sister, guardian. RN has spoken to [facility] and they are willing to be at [facility] Wednesday to support patient for a work-up that includes a CT Scan. Guardian's wishes for work-up and possible tx conflict with patient's desires. Date Signed: 04/05/2017 04:57 PM Electronically Signed By:Alyssa Bolanos LCSW
--- NOTE | 2017-04-05 19:59 | HOSPPROG ---
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 to staff, she refuses everything, including labs/O2 Objective: Vital Signs Temp Pulse Resp BP Pulse Ox 36.9 C 89 24 H 112/72 89 L 04/05/17 19:10 04/05/17 19:10 04/05/17 19:10 04/05/17 19:10 04/05/17 19:10 Laboratory Results 04/02/17 04:12 04/02/17 04:12 04/04/17 04/05/17 04/06/17 05:59 05:59 05:59 Intake Total 632 176 2599 Output Total 0 Balance 318 770 5167 PT 15.2 SEC (12.0-15.0) H 04/02/17 04:12 INR 1.18 (0.83-1.16) H 04/02/17 04:12 d/w Dr. Lavon Dixon - difficult ethical issue CXR - negative - Physical Exam Constitutional: no apparent distress, appears nourished, not in pain Cardiovascular: regular rate and rhythym, no murmur, rub, or gallop Respiratory: no respiratory distress, no rales or rhonchi, clear to auscultation Gastrointestinal: normoactive bowel sounds, soft, non-tender abdomen, no palpable masses Skin: no rashes or abrasions, no fluctuance, no induration Neurologic: No AAOx3 Psychiatric: encephalopathic, poor insight, poor judgement, poor memory, No interacting appropriately ICD10 Worksheet Patient Problems: Problems Problem Status Onset Anemia Acute Hypoxemia Acute
[2017-04-05] MEDS: OLANZapine 10 MG TAB PO SCH (21:17)
[2017-04-05] MEDS: QUEtiapine FUMARATE 200 MG TAB PO SCH (21:18)
[2017-04-06] MEDS: PANTOPRAZOLE SODIUM 40 MG TAB PO SCH ×2 (08:54→23:02)
[2017-04-06] MEDS: GABAPENTIN 400 MG CAP PO SCH ×3 (08:54→23:02)
[2017-04-06] MEDS: LORazepam 1 MG TAB PO PRN ×2 (08:54→16:16)
[2017-04-06] MEDS: OXcarbazepine 300 MG TAB PO SCH ×3 (08:54→23:02)
[2017-04-06] MEDS: MULTIVITAMINS 1 EACH TAB PO SCH (08:55)
[2017-04-06] MEDS: DOCUSATE SODIUM 100 MG CAP PO SCH ×2 (10:08→23:01)
[2017-04-06 13:36] LABS: PLATELET COUNT 365 10^3/uL (150-400)
[2017-04-06] MEDS ORDERED: DIAZEPAM 10 MG TAB ONE (13:43)
[2017-04-06] MEDS: DIAZEPAM 10 MG TAB PO ONE ×2 (13:45→15:04)
[2017-04-06] MEDS ORDERED: IOPAMIDOL (ISOVUE 370) 100 ML BTL IV ONE (14:02)
--- NOTE | 2017-04-06 15:05 | ASMTCMCOM ---
CM Note CM Note Notes: Meeting with [facility] Circuit Court Judge, Lenore, Ethics, Palliative, CM, Senior Producer. Patient has been living in host [facility] for the last 1 1/2 yrs. She has dxs: DD-CP, Autistic, Bipolar and Mental Retardation. Lenore reports that patient says "no" to everything-even things she likes. [facility] and Guardian want patient to have the treatment needed. Patient did consent to having an IV for the CT Scan with assist from Lenore. Lenore feels that the best discharge for patient would be for her to return to her [facility]. Date Signed: 04/06/2017 03:04 PM Electronically Signed By:Alyssa Bolanos LCSW
[2017-04-06] MEDS ORDERED: ENOXAPARIN 80 MG/0.8 ML SYR SC ONE (15:51)
[2017-04-06] MEDS ORDERED: LORazepam 1 MG TAB ONE (15:53)
[2017-04-06] MEDS: ENOXAPARIN 60 MG/0.6 ML SYR SC SCH ×2 (16:11→23:06)
--- NOTE | 2017-04-06 18:43 | HOSPPROG ---
Hospitalist Progress Note Assessment/Plan: * Large bilateral PE -SubQ lovenox -await oral agent until after GI work-up complete * Iron deficiency anemia -improved post 1 unit PRBC -needs EGD/colonoscopy - especially with need for anticoagulation -need to coordinate with caregivers support needed for GI prep * Pulmonary HTN -due to PE * Autism/cerebral palsy/Bipolar -per caregivers patient has mental capacity of 2-3 year old child -refusing treatment - but not understanding consequences -she does not have decisional capacity -sister is guardian and wants full treatment -patient known to refuse everything, even things she wants -try to engage caregivers that she trusts to assist to get needed tests -does well with pre-medicate testing with ativan Subjective: IV and CT performed with caregiver from nursing home present Objective: Vital Signs Temp Pulse Resp BP Pulse Ox 36.8 C 90 26 H 108/68 87 L 04/06/17 02:19 04/06/17 02:19 04/06/17 02:19 04/06/17 02:19 04/06/17 02:19 Laboratory Results 04/06/17 13:20 04/06/17 13:20 04/05/17 04/06/17 04/07/17 05:59 05:59 05:59 Intake Total 960 2320 480 Output Total 0 Balance 960 2320 480 PT 15.2 SEC (12.0-15.0) H 04/02/17 04:12 INR 1.18 (0.83-1.16) H 04/02/17 04:12 CTA chest - large bilateral PE CT personally reviewed with DR. Lugo - Physical Exam Constitutional: no apparent distress, appears nourished, not in pain Cardiovascular: regular rate and rhythym, no murmur, rub, or gallop Respiratory: no respiratory distress, no rales or rhonchi, clear to auscultation Gastrointestinal: normoactive bowel sounds, soft, non-tender abdomen, no palpable masses Skin: no rashes or abrasions, no fluctuance, no induration Neurologic: No AAOx3 Psychiatric: encephalopathic, anxious, agitated, poor insight, poor judgement, poor memory ICD10 Worksheet Patient Problems: Problems Problem Status Onset Anemia Acute Hypoxemia Acute
[2017-04-06] MEDS: OLANZapine 10 MG TAB PO SCH (23:02)
[2017-04-06] MEDS: QUEtiapine FUMARATE 200 MG TAB PO SCH (23:02)
--- NOTE | 2017-04-07 02:15 | GCON ---
[f rep st] CONSULTATION PULMONARY CRITICAL CARE CONSULTATION DATE OF CONSULTATION: 04/06/2017 REASON FOR CONSULTATION: Pulmonary emboli. HISTORY: The patient is a 61-year-old developmentally delayed woman, who was admitted on March 31 from [facility]. Secondary to hypoxemia. She was recently hospitalized at [facility] for pn eumonia. She was sent home with an order for oxygen but apparently this was never set up. It is unc lear why she was at [facility]; however, she was sent to the emergency department for further eval uation. She was found to have a significantly low hemoglobin and hematocrit; 5.4 and 16 respectively . She did receive 1 unit of packed red blood cells. Hematocrit has subsequently been stable. Her w orkup has been difficult secondary to her refusing medications, IVs, oxygen and other therapies. She has been given low-dose benzodiazepines with improvement in her cooperation. A CT scan of the abdom en was done today with contrast. This included the chest as well. Relatively large volume pulmonary embolic disease was identified. The patient denies significant shortness of breath, pleuritic pain, hemoptysis, or other symptoms. She has had intermittent leg edema. Cardiac echo done previously di d show pulmonary hypertension with estimated pressures of 53 on the right side. Left ventricular fun ction was normal. She has been seen by gastroenterology initially. Workup for possible GI blood los s is pending. She does have a known hiatal hernia. CT scan of the abdomen was otherwise negative. GI evaluation has been difficult secondary to the patient's adamant refusal for procedures. The rufino ent's guardian and medical power of real estate associate attorney, her sister, however, does want all appropriate diagnost ic studies and therapeutic interventions to be done. PAST MEDICAL HISTORY: Remarkable for developmental delay, and possibly some psychiatric disease. MEDICATIONS: On admission included Neurontin, Seroquel, Zyprexa, Trileptal, and ranitidine. SOCIAL HISTORY: She lives in a home with caretakers. She is a never smoker. Alcohol is negative. PHYSICAL EXAMINATION: GENERAL: Reveals a woman who is lying comfortably in bed. VITAL SIGNS: She is mildly tachypneic in the 20s. Room air saturations are 87% to 89%. She has been refusing oxygen. She is afebrile. Blood pressure is approximately 110/70, heart rate 90 and regular. HEENT: Unrem arkable for lymphadenopathy or thyromegaly. There is no obvious jugular venous distention. CHEST: Clear bilaterally. Excursions seem normal. There are no rales, no rub. The heart is regular. P2 i s increased and there is a right-sided gallop. The abdomen appears soft and nontender. Bowel sounds are present. EXTREMITIES: Equal in size bilaterally without significant edema. With light touch s he says "ow" to both lower extremities. Cords are not definitely appreciated. NEUROLOGIC: Nonfocal . ASSESSMENT: 1. Relatively large volume pulmonary emboli. It is unclear when this occurred. Perhaps this is rel ated to her recent hospitalization. Full-dose anticoagulation is indicated despite the fact that she has not completed her gastrointestinal workup. No obvious gastrointestinal bleeding is noted. 2. Anemia. The patient was significantly anemic on admission. She was iron deficient with a very l ow iron saturation and low ferritin. Her anemia is chronic. Dietary factors may be playing a role. 3. History of developmental delay, possible psychiatric disorder. Treatment has been quite difficul t secondary to this. The patient tends to refuse most therapies. With benzodiazepines, she has beco me more cooperative. PLAN AND RECOMMENDATIONS: Full-dose anticoagulation will be continued. Her usual medications will b e continued. Benzodiazepines should be used as needed for anxiety regarding procedures and therapies . Pantoprazole will be continued. GI evaluation hopefully will be completed. This will be jahaira vásquez with GI. Further plans and recommendations will be made based on her progress over the next 12-24 hours. /[id number]/MODL
[2017-04-07 06:52] LABS: PLATELET COUNT 400 10^3/uL (150-400)
[2017-04-07] MEDS: DOCUSATE SODIUM 100 MG CAP PO SCH ×3 (08:57→22:04)
[2017-04-07] MEDS: PANTOPRAZOLE SODIUM 40 MG TAB PO SCH ×2 (09:36→21:45)
[2017-04-07] MEDS: MULTIVITAMINS 1 EACH TAB PO SCH (09:36)
[2017-04-07] MEDS: GABAPENTIN 400 MG CAP PO SCH ×3 (09:36→21:45)
[2017-04-07] MEDS: OXcarbazepine 300 MG TAB PO SCH ×3 (09:36→21:46)
[2017-04-07] MEDS: ENOXAPARIN 60 MG/0.6 ML SYR SC SCH ×2 (09:36→09:41)
[2017-04-07] MEDS: ENOXAPARIN 80 MG/0.8 ML SYR SC SCH ×2 (09:41→21:35)
--- NOTE | 2017-04-07 11:48 | SOAPPROG ---
SOAP Progress Note Assessment/Plan: Assessment:Plan: 1) iron def anemia from chronic blood loss - appropriate to eval with EGD and colon but pt very clear that she does not want these invasive procedures. She will not allow me to examine her and refuses procedures. They are not life saving procedures as she has no significant acute GI blood loss at present. Possible etiologies include Salvatore erosions form her large HH, ulcers, cancers , vascular ectasia to mention a few. Salvatore Erosions, PUD, gastritis are all being treated with PPI BID. Ct scan (without oral contrast) doesn't reveal any obvious malignancy. She would need a prep for a colonoscopy even if she had days of liquid diet. One can argue that no EGD necessary as long as her anemia improves/resolves and doesn't recur. She can get iron MVI which she may take. 2)psych/autism/consent - very difficult issues here. I need to speak with the [facility] raspberry checker - the Ethics note I can read certainly does not clear up the legal issues. 3) anemia - HB up now on PPI BID for last few days and with 1 unit PRBC. IF continues to improve, especially with anticoagulation, I would assume the etiology is Salvatore Erosions as that is all we are treating 4) PE - I would agree with starting heparin. IF any sig GI bleed, it can be stopped quickly. This will be a provocative test for her GI bleed etiology. 04/07/17 11:38 Subjective: cc- anemia, autism pt refuses to allow me to touch her she stated to me she wanted to make a complaint against a nurse that 'hurt her' she says no abdo pain Objective: Vital Signs Temp Pulse Resp BP Pulse Ox 36.8 C 97 16 124/64 H 88 L 04/07/17 03:07 04/07/17 08:00 04/07/17 08:00 04/07/17 08:00 04/07/17 08:00 Laboratory Results 04/07/17 06:40 04/06/17 13:20 04/06/17 04/07/17 04/08/17 05:59 05:59 05:59 Intake Total 2320 1080 Balance 2320 1080 PT 15.2 SEC (12.0-15.0) H 04/02/17 04:12 INR 1.18 (0.83-1.16) H 04/02/17 04:12 alert but not oriented wont allow me to touch her ICD10 Worksheet Patient Problems: Problems Problem Status Onset Anemia Acute Hypoxemia Acute
[2017-04-07] MEDS: FERROUS SULFATE 325 MG TAB PO SCH (11:57)
--- NOTE | 2017-04-07 16:33 | PDINTPN ---
[facility] [employer]rector Progress Note Assessment/Plan: Assessment: Pulmonary emboli: On full-dose subcu enoxaparin. Can transition to oral anticoagulation once procedures are done. Anemia: Iron deficient. Etiology not yet clear. Not the best candidate for upper endoscopy or colonoscopy as she continues to refuse these. She does have a hiatal hernia and may have some ulceration related to that. She has not yet stooled so guaiacs have not been done. Iron will be added. GI is continuing to re-evaluate regarding endoscopies. History of developmental delay and psychiatric disease. She is being more compliant with care but refuses examinations, testing, therapies, etc.. Benzodiazepines are helping. Plan: Continue present therapies. Follow hemoglobin and hematocrit. Guaiac stool when possible. Continue PPI. Continue full-dose anticoagulation with subcu enoxaparin. Continue to work with the patient regarding being more compliant with therapies. Continue to address endoscopies with Gastroenterology regarding the timing of this, their are concerns regarding legal implications if she will not consent, etc. Subjective: Sleeping, appears comfortable, arousable, responsive. Refusing parts of examination Objective: Vital Signs Temp Pulse Resp BP Pulse Ox 36.8 C 97 16 124/64 H 88 L 04/07/17 03:07 04/07/17 08:00 04/07/17 08:00 04/07/17 08:00 04/07/17 08:00 Laboratory Results 04/07/17 06:40 04/06/17 13:20 04/06/17 04/07/17 04/08/17 05:59 05:59 05:59 Intake Total 2320 1080 Balance 2320 1080 PT 15.2 SEC (12.0-15.0) H 04/02/17 04:12 INR 1.18 (0.83-1.16) H 04/02/17 04:12 ICD10 Worksheet Patient Problems: Problems Problem Status Onset Hypoxemia Acute Anemia Acute
--- NOTE | 2017-04-07 17:06 | HOSPPROG ---
Hospitalist Progress Note Assessment/Plan: * Large bilateral PE -SubQ lovenox -await oral agent until after GI work-up complete * Iron deficiency anemia -improved post 1 unit PRBC -needs EGD/colonoscopy - especially with need for anticoagulation -need to coordinate with caregivers support needed for GI prep * Pulmonary HTN -due to PE * Cerebral palsy/Bipolar -per caregivers patient has mental capacity of 2-3 year old child - IQ 65 -doesn't understand consequences and guardian requests full work-up and tx -does well with benzos to decrease anxiety and increase compliance with med therapy -d/w Marilyn Grissom MD psych eval to review meds and optimize tx -caregivers willing to support situation as needed to get inpatient colonoscopy Subjective: No new complaints. Objective: Vital Signs Temp Pulse Resp BP Pulse Ox 36.8 C 97 16 124/64 H 87 L 04/07/17 03:07 04/07/17 08:00 04/07/17 08:00 04/07/17 08:00 04/07/17 16:00 Laboratory Results 04/07/17 06:40 04/06/17 13:20 04/06/17 04/07/17 04/08/17 05:59 05:59 05:59 Intake Total 2320 1080 Balance 2320 1080 PT 15.2 SEC (12.0-15.0) H 04/02/17 04:12 INR 1.18 (0.83-1.16) H 04/02/17 04:12 d/w Dr. Lavon Dixon regarding plan of care - Time Spent With Patient Time Spent with Patient: greater than 35 minutes Time Spent with Patient: Greater than 35 minutes spent on this patients care, greater than 50% of time spent counseling, educating, and coordinating care regarding the above mentioned plan. - Physical Exam Constitutional: no apparent distress, appears nourished, not in pain Cardiovascular: regular rate and rhythym, no murmur, rub, or gallop Respiratory: no respiratory distress, no rales or rhonchi, clear to auscultation Gastrointestinal: normoactive bowel sounds, soft, non-tender abdomen, no palpable masses Skin: no rashes or abrasions, no fluctuance, no induration Psychiatric: agitated, poor insight, poor judgement, No interacting appropriately, No thought process linear, No poor memory ICD10 Worksheet Patient Problems: Problems Problem Status Onset Anemia Acute Hypoxemia Acute
[2017-04-07] MEDS: QUEtiapine FUMARATE 200 MG TAB PO SCH (21:46)
[2017-04-07] MEDS: OLANZapine 10 MG TAB PO SCH (21:46)
[2017-04-08 07:35] LABS: PLATELET COUNT 443 10^3/uL (150-400)
[2017-04-08] MEDS: GABAPENTIN 400 MG CAP PO SCH ×3 (09:41→20:50)
[2017-04-08] MEDS: MULTIVITAMINS 1 EACH TAB PO SCH (09:42)
[2017-04-08] MEDS: ENOXAPARIN 80 MG/0.8 ML SYR SC SCH ×2 (09:42→20:51)
[2017-04-08] MEDS: FERROUS SULFATE 325 MG TAB PO SCH (09:42)
[2017-04-08] MEDS: DOCUSATE SODIUM 100 MG CAP PO SCH ×2 (09:42→20:51)
[2017-04-08] MEDS: PANTOPRAZOLE SODIUM 40 MG TAB PO SCH ×2 (09:42→20:49)
[2017-04-08] MEDS: OXcarbazepine 300 MG TAB PO SCH ×3 (09:42→20:50)
--- NOTE | 2017-04-08 13:05 | SOAPPROG ---
KATIANA Progress Note Assessment/Plan: Assessment:Plan: 1) iron def anemia from chronic blood loss - appropriate to eval with EGD and colon but pt very clear that she does not want these invasive procedures. She will not allow me to examine her and refuses procedures. They are not life saving procedures as she has no significant acute GI blood loss at present. Possible etiologies include Salvatore erosions form her large HH, ulcers, cancers , vascular ectasia to mention a few. Salvatore Erosions, PUD, gastritis are all being treated with PPI BID. Ct scan (without oral contrast) doesn't reveal any obvious malignancy. She would need a prep for a colonoscopy even if she had days of liquid diet. One can argue that no EGD necessary as long as her anemia improves/resolves and doesn't recur. She can get iron MVI which she may take. 2)psych/autism/consent - very difficult issues here. I need to speak with the [facility] chore worker - the Ethics note I can read certainly does not clear up the legal issues. 3) anemia - HB up now on PPI BID for last few days and with 1 unit PRBC. IF continues to improve, especially with anticoagulation, I would assume the etiology is Salvatore Erosions as that is all we are treating 4) PE - I would agree with starting heparin. IF any sig GI bleed, it can be stopped quickly. This will be a provocative test for her GI bleed etiology. 04/07/17 11:38 04/08/17 12:59 as above I have spoken to [facility] chore worker they state all legal issue with consent are fine - they will send me all the court info to my work email they feel all legal issues are resolved I will need to get consent from her guardians and they will have to help with the prep I have left a vm with Dr. Hernandez to see if she wants us to perform EGD today and then prep for colon 1) iron def - EGD and colon, hold iron, prep 2) PE - lovenox as per hospitalists Subjective: cc- iron def anemia pt very angry says she wants to leave doesn't want colonoscopy Objective: Vital Signs Temp Pulse Resp BP Pulse Ox 36.9 C 90 20 117/59 L 88 L 04/08/17 10:32 04/08/17 10:32 04/07/17 21:40 04/08/17 10:32 04/08/17 10:32 Laboratory Results 04/08/17 07:24 04/06/17 13:20 04/07/17 04/08/17 04/09/17 05:59 05:59 05:59 Intake Total 1080 720 Balance 1080 720 PT 15.2 SEC (12.0-15.0) H 04/02/17 04:12 INR 1.18 (0.83-1.16) H 04/02/17 04:12 alert but not oriented I was able to briefly palpate her abdomen before she forcefully removed my hand abdo - soft, nt Laboratory Tests 04/02/17 04/06/17 04/07/17 04:12 13:20 06:40 Hgb 7.8 L 8.7 L 8.4 L Stool Occult Bld Scrn 04/07/17 04/08/17 21:45 07:24 Hgb 8.2 L Stool Occult Bld Scrn NEGATIVE ICD10 Worksheet Patient Problems: Problems Problem Status Onset Anemia Acute Hypoxemia Acute
[2017-04-08] MEDS ORDERED: BISACODYL 5 MG EC TAB PO ONE ×2 (13:42→17:45)
--- NOTE | 2017-04-08 15:27 | ASMTCMCOM ---
CM Note CM Note Notes: -Spoke w/MD regarding poc for pt. She is developmentally delayed, has CP and is Bipolar. She lives with caregivers Jabari and his in a host home called [facility]. Pt needs colonoscopy to determine possible bleeding, may benefit from home care. Host Home caregivers Jabari: [phone] [email or web address] Therapeutic Radiologist Lenore: [phone] [email or web address] Life RN Dorsalis: [phone] Appointed Guardian sister Taylor: [phone] DC Plan: Return to host home w/home care Date Signed: 04/08/2017 03:26 PM Electronically Signed By:Marilyn Goodwin RN
[2017-04-08] MEDS ORDERED: LORazepam 2 MG/ML INJ IVP PRN (16:20)
[2017-04-08] MEDS: LORazepam 1 MG TAB PO PRN (17:15)
[2017-04-08] MEDS: POLYETHYLENE GLYCOL 3350 17 GM PKT PO SCH (17:36)
--- NOTE | 2017-04-08 19:41 | HOSPPROG ---
Hospitalist Progress Note Assessment/Plan: * Large bilateral PE -SubQ lovenox -await oral agent until after GI work-up complete -hold lovenox in am for procedure * Iron deficiency anemia -improved post 1 unit PRBC -needs EGD/colonoscopy - especially with need for anticoagulation -d/w Dr. Wynn - EGD/colonoscopy scheduled for am -home caregivers to come in tonight and assist staff in administering prep -Miralax prep more tolerable to patient * Pulmonary HTN -due to PE * Cerebral palsy/Bipolar -per caregivers patient has mental capacity of 2-3 year old child - IQ 65 -doesn't understand consequences and guardian requests full work-up and tx -does well with benzos to decrease anxiety and increase compliance with med therapy -d/w Marilyn Montelongo - psych eval to review meds and optimize tx -caregivers willing to support situation as needed to get inpatient colonoscopy -case discussed at length with sister Taylor - court appointed guardian -she feels very strongly that we proceed with EGD and colonoscopy -patient's outward refusal is part of her anxiety disorder and she does not understand big picture -Taylor personally called local caregiver to come in tonight and assist us -they have many established techniques they use to motivate patient in needed direction Subjective: outwardly refusing colonoscopy Objective: Vital Signs Temp Pulse Resp BP Pulse Ox 36.6 C 102 H 20 94/58 L 90 L 04/08/17 16:00 04/08/17 16:00 04/08/17 16:00 04/08/17 16:00 04/08/17 16:00 Laboratory Results 04/08/17 07:24 04/06/17 13:20 04/07/17 04/08/17 04/09/17 05:59 05:59 05:59 Intake Total 1080 720 300 Balance 1080 720 300 PT 15.2 SEC (12.0-15.0) H 04/02/17 04:12 INR 1.18 (0.83-1.16) H 04/02/17 04:12 - Time Spent With Patient Time Spent with Patient: greater than 35 minutes Time Spent with Patient: Greater than 35 minutes spent on this patients care, greater than 50% of time spent counseling, educating, and coordinating care regarding the above mentioned plan. - Physical Exam Constitutional: no apparent distress, appears nourished, not in pain Cardiovascular: regular rate and rhythym, no murmur, rub, or gallop Respiratory: no respiratory distress, no rales or rhonchi, clear to auscultation Gastrointestinal: normoactive bowel sounds, soft, non-tender abdomen, no palpable masses Skin: no rashes or abrasions, no fluctuance, no induration Psychiatric: agitated, poor insight, poor judgement, No interacting appropriately, No encephalopathic ICD10 Worksheet Patient Problems: Problems Problem Status Onset Anemia Acute Hypoxemia Acute
[2017-04-08] MEDS: QUEtiapine FUMARATE 200 MG TAB PO SCH (20:49)
[2017-04-08] MEDS: OLANZapine 10 MG TAB PO SCH (20:50)
--- NOTE | 2017-04-09 00:16 | SOAPPROG ---
SOAP Progress Note Assessment/Plan: PSYCHIATRY MD NOTE 04/08/17 17:30 Attempted to interview pt this pm after discussed case with behavioral health Marilyn Montelongo,RN yesterday, and received request for psychiatric medication consultation. Patient was sound asleep, and after discussion with nursing staff, and with behavioral issues/concerns, decision made to not awaken pt for interview at this time, and instead try again later. Will review EMR and discuss with primary team. Objective: Vital Signs Temp Pulse Resp BP Pulse Ox 36.7 C 82 18 110/71 89 L 04/08/17 21:25 04/08/17 21:25 04/08/17 21:25 04/08/17 21:25 04/08/17 21:25 Laboratory Results 04/08/17 07:24 04/06/17 13:20 04/07/17 04/08/17 04/09/17 05:59 05:59 05:59 Intake Total 1080 720 420 Output Total 200 Balance 1080 720 220 PT 15.2 SEC (12.0-15.0) H 04/02/17 04:12 INR 1.18 (0.83-1.16) H 04/02/17 04:12 - Time Spent With Patient Time Spent With Patient: n/a - Pending Discharge Pending Discharge Within 24 Hours: No Pending Discharge Within 48 Hours: No ICD10 Worksheet Patient Problems: Problems Problem Status Onset Anemia Acute Hypoxemia Acute
[2017-04-09] MEDS: POLYETHYLENE GLYCOL 3350 17 GM PKT PO SCH ×2 (07:34→09:17)
--- NOTE | 2017-04-09 10:16 | ASMTCMCOM ---
CM Note CM Note Notes: CM spoke w/ Dr. Wynn regarding d/c POC. Anticipate d/c for next week after her colonoscopy. The plan remains the same. Pt will return to host home when medically stable. CM met w/ pt for dispo planning. Pt reports that she is not interested in HC. CM called sister, court appointed guardian regarding d/c planning. Sister would like referrals made to HC agencies. Referrals made to a number of HC agencies. CM to follow. Plan: HC, PT, OT, RN, Date Signed: 04/09/2017 10:15 AM Electronically Signed By:PARTH Emerson
[2017-04-09] MEDS: GABAPENTIN 400 MG CAP PO SCH ×3 (10:22→20:37)
[2017-04-09] MEDS: MULTIVITAMINS 1 EACH TAB PO SCH (10:22)
[2017-04-09] MEDS: OXcarbazepine 300 MG TAB PO SCH ×5 (10:22→20:40)
[2017-04-09] MEDS: PANTOPRAZOLE SODIUM 40 MG TAB PO SCH ×2 (10:23→20:37)
[2017-04-09] MEDS: DOCUSATE SODIUM 100 MG CAP PO SCH ×2 (11:09→20:39)
--- NOTE | 2017-04-09 15:01 | HOSPPROG ---
Hospitalist Progress Note Assessment/Plan: DIAGNOSES: -severe symptomatic anemia with severe iron deficiency, unknown chronicity but strongly suggest GI malignancy or other GI lesion causing moderately slow bleed -acute bilateral PE -acute hypoxemic respiratory failure now resolved, primarily due to PE and anemia and some myocardial dysfunction related to the anemia -left-sided pleural effusion, very small not likely symptomatic -severe pulmonary hypertension and 50s; reportedly no smoking or previous lung history, wonder if she could potentially have a PE; no valvular cause identified on echocardiogram; chest rate does not look like COPD -recent pneumonia diagnosed at another hospital and treated there discharge 2 weeks ago -history of hip fracture and therefore osteoporosis is suspected -chronic mental health illnesses -her sister is her POA and medical guardian and is involved in our discussions here -her caregiver from her home in [place] has been present at the bedside throughout the day today and continues to be very helpful here in managing the patient's multiple issues The patient has again today been attempting to decline taking med with medicines but did in the intake her medicines with the help of her caregiver to convince her. She also was declining initially her colon prep but is now taking her colon prep again with the help of her home caregiver. She remains overall clinically stable otherwise. The patient has ongoing fear issues and did tell me that she did not want have her endoscopies but I reviewed with her the real need for these tests. She again does mention that she does not want to and will do what she needs to stay alive and we reviewed that that will require getting her GI diagnosis as cause of her anemia identified and treated. Extensive discussion at the bedside with the patient and her caregiver today regarding all the above issues and plans PLANS: -continue off Lovenox until we get her through her endoscopy -resume anticoagulation after that -need to recheck hemoglobin and chemistries to make sure all stable at this time , have ordered labs -full blood counts very closely as well as hemodynamics -continue were carefully with her to try and keep her psychiatric medications going -further plans once we see the results of upper and lower endoscopy which will probably be tomorrow SUBJECTIVE: Main concern today is fear of her endoscopic procedure which is pending, and she had some nausea vomiting with attempted taking Colyte. She is now tolerating alternative colon prep well No observed visible bleed, no abdominal pain or other pain No shortness of breath OBJECTIVE Vitals reviewed: Stable without fever Ferry Boat Captain, my review: Sinus Exam: alert oriented skin warm dry color ok resps not labored lungs clear BSs heart regular abd soft nondistended nontender, bowel sounds present limbs warm, no edema iv site ok Objective: Vital Signs Temp Pulse Resp BP Pulse Ox 36.9 C 76 18 113/79 85 L 04/09/17 09:59 04/09/17 09:59 04/09/17 09:59 04/09/17 09:59 04/09/17 09:59 Laboratory Results 04/08/17 07:24 04/06/17 13:20 04/08/17 04/09/17 04/10/17 06:59 06:59 06:59 Intake Total 255 930 2819 Output Total 200 300 Balance 720 340 900 PT 15.2 SEC (12.0-15.0) H 04/02/17 04:12 INR 1.18 (0.83-1.16) H 04/02/17 04:12 - Time Spent With Patient Time Spent with Patient: greater than 35 minutes Time Spent with Patient: Greater than 35 minutes spent on this patients care, greater than 50% of time spent counseling, educating, and coordinating care regarding the above mentioned plan. ICD10 Worksheet Patient Problems: Problems Problem Status Onset Anemia Acute Hypoxemia Acute
--- NOTE | 2017-04-09 16:19 | ASMTCMCOM ---
CM Note CM Note Notes: [facility] is able to accept pt. CM spoke w/ Marjorie (P#: [phone]) at [facility] and provided hx, in addition to providing phone numbers to contacts in pts life. Pt is residing at [address] [place] [address] with her caregivers through [facility]. [facility] has been updated w/ address in [place]. CM to follow. Plan: [facility], PT, OT, RN, SW Date Signed: 04/09/2017 04:18 PM Electronically Signed By:PARTH Emerson
--- NOTE | 2017-04-09 19:49 | SOAPPROG ---
KATIANA Progress Note Assessment/Plan: Assessment:Plan: 1) iron def anemia from chronic blood loss - appropriate to eval with EGD and colon but pt very clear that she does not want these invasive procedures. She will not allow me to examine her and refuses procedures. They are not life saving procedures as she has no significant acute GI blood loss at present. Possible etiologies include Salvatore erosions form her large HH, ulcers, cancers , vascular ectasia to mention a few. Salvatore Erosions, PUD, gastritis are all being treated with PPI BID. Ct scan (without oral contrast) doesn't reveal any obvious malignancy. She would need a prep for a colonoscopy even if she had days of liquid diet. One can argue that no EGD necessary as long as her anemia improves/resolves and doesn't recur. She can get iron MVI which she may take. 2)psych/autism/consent - very difficult issues here. I need to speak with the [facility] associate biological sales - the Ethics note I can read certainly does not clear up the legal issues. 3) anemia - HB up now on PPI BID for last few days and with 1 unit PRBC. IF continues to improve, especially with anticoagulation, I would assume the etiology is Salvatore Erosions as that is all we are treating 4) PE - I would agree with starting heparin. IF any sig GI bleed, it can be stopped quickly. This will be a provocative test for her GI bleed etiology. 04/07/17 11:38 04/08/17 12:59 as above I have spoken to [facility] associate biological sales they state all legal issue with consent are fine - they will send me all the court info to my work email they feel all legal issues are resolved I will need to get consent from her guardians and they will have to help with the prep I have left a vm with Dr. Hernandez to see if she wants us to perform EGD today and then prep for colon 1) iron def - EGD and colon, hold iron, prep 2) PE - lovenox as per hospitalists 04/09/17 19:48 pt just finished prep will order one bottle mag citrate for am Sunshine Figueroa will be MD performing procedures tomorrow with anesthesia Subjective: CC- anemia pt tells me she is going home tomorrow adn not having the tests Objective: Vital Signs Temp Pulse Resp BP Pulse Ox 36.8 C 83 18 120/76 95 04/09/17 15:19 04/09/17 15:19 04/09/17 15:19 04/09/17 15:19 04/09/17 15:19 Laboratory Results 04/08/17 07:24 04/06/17 13:20 04/08/17 04/09/17 04/10/17 05:59 05:59 05:59 Intake Total 512 885 6185 Output Total 200 300 Balance 720 340 950 PT 15.2 SEC (12.0-15.0) H 04/02/17 04:12 INR 1.18 (0.83-1.16) H 04/02/17 04:12 awake wont allow me to examine her ICD10 Worksheet Patient Problems: Problems Problem Status Onset Anemia Acute Hypoxemia Acute
[2017-04-09] MEDS: ENOXAPARIN 80 MG/0.8 ML SYR SC SCH (20:32)
[2017-04-09] MEDS: OLANZapine 10 MG TAB PO SCH (20:36)
[2017-04-09] MEDS: QUEtiapine FUMARATE 200 MG TAB PO SCH (20:39)
[2017-04-10] MEDS ORDERED: MAGNESIUM CITRATE 300 ML BOTTLE PO ONE (07:00)
[2017-04-10] MEDS: OXcarbazepine 300 MG TAB PO SCH ×3 (09:44→20:27)
[2017-04-10] MEDS: GABAPENTIN 400 MG CAP PO SCH ×3 (09:44→20:27)
[2017-04-10] MEDS: PANTOPRAZOLE SODIUM 40 MG TAB PO SCH ×2 (09:45→20:27)
[2017-04-10] MEDS: LORazepam 1 MG TAB PO PRN (09:48)
--- NOTE | 2017-04-10 10:25 | HOSPPROG ---
Hospitalist Progress Note Assessment/Plan: 61-year-old with chronic mental illness and inability to make her own healthcare decisions is admitted with symptomatic anemia with iron deficiency. Her sister is her medical power of commercial real estate attorney and medical guardian. After evaluation it has been decided that she needs to have an upper and lower endoscopy to further evaluate the cause of her anemia and rule out possible malignancy, however the patient is reluctant to proceed with this and just wants to go home. It does not appear to be any acute bleeding during this admission. # severe symptomatic anemia with iron deficiency of unknown chronicity but suggestive of GI cause. Worry about possible malignancy. Her care has been complicated by the fact that she is unwilling to proceed with any testing despite the need and her medical power of commercial real estate attorney has made the decision to proceed with testing. * discussed with GI, possible upper and lower endoscopy once patient is taking the prep * Continue to monitor blood counts will recheck hemoglobin tomorrow she has not had a recheck recently but had been stable up until 2 days ago * Continue supportive care # acute bilateral pulmonary embolism. Will continue heparin and monitor blood counts closely. This will need to be held prior to any procedures. * Continue heparin * Hemodynamically stable # pleural effusion likely secondary to PE, asymptomatic # chronic mental illness, patient is not able to make her own healthcare decisions and her sister is her medical power of commercial real estate attorney. Her home is in [place] and her caregiver has been present during the day here. * Poor compliance with medications and treatment secondary to her chronic mental illness * The continue to rely on her caregiver to help us convince the patient to take her medicines. # history of hip fracture, possible osteoporosis # recent history of pneumonia, status post treatment Subjective: Patient new to me and chart reviewed, discussed with GI. Patient belligerent and will not allow me to talk with her or examine her until significant convincing. Objective: Vital Signs Temp Pulse Resp BP Pulse Ox 37.1 C 92 16 112/68 82 L 04/09/17 20:12 04/09/17 20:12 04/09/17 20:12 04/09/17 20:12 04/09/17 20:12 Laboratory Results 04/08/17 07:24 04/06/17 13:20 04/09/17 04/10/17 04/11/17 05:59 05:59 05:59 Intake Total 540 1250 Output Total 200 300 Balance 340 950 PT 15.2 SEC (12.0-15.0) H 04/02/17 04:12 INR 1.18 (0.83-1.16) H 04/02/17 04:12 - Physical Exam Constitutional: not in pain, chronically ill appearing Eyes: PERRL, anicteric sclera, EOMI Ears, Nose, Mouth, Throat: moist mucous membranes, hearing normal Cardiovascular: regular rate and rhythym Respiratory: no respiratory distress Gastrointestinal: soft, non-tender abdomen Genitourinary: no bladder fullness Skin: warm Musculoskeletal: no joint effusions Neurologic: No facial droop Psychiatric: agitated, poor insight, poor judgement ICD10 Worksheet Patient Problems: Problems Problem Status Onset Hypoxemia Acute Anemia Acute
[2017-04-10] MEDS: MULTIVITAMINS 1 EACH TAB PO SCH ×2 (10:36→19:10)
[2017-04-10] MEDS: DOCUSATE SODIUM 100 MG CAP PO SCH ×4 (10:36→21:14)
--- NOTE | 2017-04-10 12:18 | PDANEPAE ---
ANE History of Present Illness 61 year old female for EGD & Colonoscopy. ANE Past Medical History - Cardiovascular History Hx Hypertension: No Hx Arrhythmias: No Hx Chest Pain: No Hx Coronary Artery / Peripheral Vascular Disease: No Hx CHF / Valvular Disease: No Hx Palpitations: No - Pulmonary History Hx COPD: No Hx Asthma/Reactive Airway Disease: No Hx Recent Upper Respiratory Infection: No Hx Oxygen in Use at Home: No Hx Sleep Apnea: No Sleep Apnea Screening Result - Last Documented: Negative - Endocrine History Hx Diabetes: No Hypothyroid: No Hyperthyroid: No Obesity: no - Renal History Hx Renal Disorders: No - Liver History Hx Hepatic Disorders: No - Neurological & Psychiatric Hx Hx Neurological and Psychiatric Disorders: Yes - Cancer History Hx Cancer: No - Congenital Disorder History Hx Congenital Disorders: No - GI History GERD: no - Chronic Pain History Chronic Pain: Yes (FEET) ANE Review of Systems Review of systems is: negative Review of Systems: - Exercise capacity Exercise capacity: limited by disability ANE Patient History - Allergies Allergies/Adverse Reactions: No Known Allergies Allergy (Unverified 03/31/17 15:08) - Home Medications Home medications: home medication list seen and reviewed Home Medications: Aspirin [Aspirin 81mg (*)] 81 mg PO DAILY 03/31/17 [Last Taken 03/31/17] Docusate Sodium [Colace 100 MG (*)] 100 mg PO BID 03/31/17 [Last Taken 03/31/17] Gabapentin [Neurontin 400 MG (*)] 400 mg PO TID 03/31/17 [Last Taken 03/31/17 19 :00] Multivitamins [Multivitamin (*)] 1 each PO DAILY 03/31/17 [Last Taken 03/31/17] OLANZapine [Zyprexa] 15 mg PO HS 03/31/17 [Last Taken 03/31/17] OXcarbazepine [Trileptal 300mg (*)] 300 mg PO TID 03/31/17 [Last Taken 03/31/17 19:00] QUEtiapine FUMARATE [Seroquel 200 mg (*)] 200 mg PO HS 03/31/17 [Last Taken ] Ranitidine HCl 150 mg PO BID 03/31/17 [Last Taken 03/31/17 19:00] - NPO status NPO Status: no food or drink >8 hours NPO Since - Solids (Date): 04/09/17 NPO Since - Solids (Time): 00:00 - Anes Hx Anes Hx: no prior problems - Smoking Hx Smoking Status: Never smoked Marijuana use: No - Alcohol Use Alcohol Use: None - Family Anes Hx Family Anes Hx: neg - N/A ANE Labs/Vital Signs - Labs Result Diagrams: 04/08/17 07:24 04/06/17 13:20 - Vital Signs Vital Signs: reviewed preoperatively; see RN documention for details Blood Pressure: 100/64 Heart Rate: 94 Respiratory Rate: 20 O2 Sat (%): 95 Height: 154.9 cm Weight: 68.1 kg ANE Physical Exam - Airway Neck exam: FROM Mallampati Score: Class 2 - Pulmonary Pulmonary: no respiratory distress - Cardiovascular Cardiovascular: regular rate and rhythym - ASA Status ASA Status: III ANE Anesthesia Plan Anesthesia Plan: GA with mask (Consent for general anesthesia obtained from patient's guardian/sister (Taylor) at [phone]) Total IV Anesthesia: Yes
[2017-04-10] MEDS ORDERED: PROPOFOL/EMULSION 500 MG/50 ML BOTTLE IV ONE (12:21)
[2017-04-10] MEDS ORDERED: fentaNYL 100 MCG/2 ML INJ IVP PRN (12:47)
[2017-04-10] MEDS ORDERED: LR 500 ML IV PRN (12:47)
[2017-04-10] MEDS ORDERED: NALOXONE HCL 0.4 MG/ML INJ IVP PRN (12:47)
--- NOTE | 2017-04-10 12:47 | GIREPORT ---
[facility] - Endoscopy Department Patient Name: Tonja Carvajal Procedure Date: 04/10/2017 11:52 AM Patient Type: Inpatient Attending MD/ ER Physician: Eleno Gonsalez MD Procedure: Upper GI endoscopy Indications: Iron deficiency anemia Providers: Eleno Gonsalez MD Medicines: Sedation Required Anesthesia Staff Assistance Complications: No immediate complications. Description of Procedure: After obtaining informed consent, the endoscope was passed under direct vision. Throughout the procedure, the patient's blood pressure, pulse, and oxygen saturations were monitored continuously. The Endoscope was intro duced through the mouth, and advanced to the second part of duodenum. The Colonoscope with irrigation channel was introduced through the mouth, a nd advanced to the second part of duodenum. The upper GI endoscopy was accomplished without difficulty. The patient tolerated the procedure we ll. Findings: The lower third of the esophagus was mildly tortuous. Esophagogastric landmarks were identified: the Z-line was found at 35 c m and the gastroesophageal junction was found at 35 cm from the incisors. A large hiatal hernia was present. The entire examined stomach was normal. Biopsies were taken with a cold forceps for histology. The examined duodenum was normal. Biopsies for histology were taken wit h a cold forceps for evaluation of celiac disease. Estimated Blood Loss: Estimated blood loss: none. Post Op Diagnosis: - Tortuous esophagus. - Esophagogastric landmarks identified. - Large hiatal hernia. - Normal stomach. Biopsied. - Normal examined duodenum. Biopsied. Recommendation: - Await pathology results. - Perform a colonoscopy today. - Thank you for allowing me to participate in the care of your patient. Attending Participation: I personally performed the entire procedure. Eleno Gonsalez MD Eleno Gonsalez MD 04/10/2017 12:46:38 PM This report has been signed electronicallyStcasey Gonsalez MD Number of Addenda: 0 Note Initiated On: 04/10/2017 11:52 AM [id number]
--- NOTE | 2017-04-10 13:06 | GIREPORT ---
[facility] - Endoscopy Department Patient Name: Tonja Carvajal Procedure Date: 04/10/2017 12:09 PM Patient Type: Inpatient Attending MD/ ER Physician: Eleno Gonsalez MD Procedure: Colonoscopy Indications: Iron deficiency anemia Providers: Eleno Gonsalez MD Medicines: Sedation Required Anesthesia Staff Assistance Complications: No immediate complications. Description of Procedure: After obtaining informed consent, the scope was passed under direct vis ion. Throughout the procedure, the patient's blood pressure, pulse, and oxyg en saturations were monitored continuously. The Colonoscope with irrigatio n channel was introduced through the anus and advanced to the cecum, identified by appendiceal orifice and ileocecal valve. The Endoscope wa s introduced through the and advanced to. The colonoscopy was performed without difficulty. The patient tolerated the procedure well. The quali ty of the bowel preparation was adequate to identify polyps. The appendiceal orifice and the rectum were photographed. Findings: The entire examined colon appeared normal on direct and retroflexion vi ews. Estimated Blood Loss: Estimated blood loss: none. Post Op Diagnosis: - The entire examined colon is normal on direct and retroflexion views. - No specimens collected. Recommendation: - Resume regular diet. - Continue present medications. - Repeat colonoscopy in 10 years for screening purposes. - Thank you for allowing me to participate in the care of your patient. Attending Participation: I personally performed the entire procedure. Eleno Gonsalez MD Eleno Gonsalez MD 04/10/2017 1:06:34 PM This report has been signed electronicallyEleno Gonsalez MD Number of Addenda: 0 Note Initiated On: 04/10/2017 12:09 PM [email or web address]}
--- NOTE | 2017-04-10 15:22 | POSTANESTH ---
Post Anesthetic Evaluation Cardiovascular Status: Normal, Stable Respiratory Status: Normal, Stable Level of Consciousness/Mental Status: Can Participate in Eval, Mildly Sleepy, Arousable Pain Control: Adequate, Prn Tx Ordered Nausea/Vomiting Control: Adequate, Prn Tx Ordered Complications Possibly Related to Anesthesia: None Noted
[2017-04-10] MEDS: ENOXAPARIN 80 MG/0.8 ML SYR SC SCH (20:26)
[2017-04-10] MEDS: QUEtiapine FUMARATE 200 MG TAB PO SCH ×2 (20:27→21:15)
[2017-04-10] MEDS: OLANZapine 10 MG TAB PO SCH (20:27)
[2017-04-11] MEDS: FERROUS SULFATE 325 MG TAB PO SCH (09:43)
[2017-04-11] MEDS: OXcarbazepine 300 MG TAB PO SCH ×3 (09:43→21:03)
[2017-04-11] MEDS: PANTOPRAZOLE SODIUM 40 MG TAB PO SCH ×2 (09:43→21:05)
[2017-04-11] MEDS: GABAPENTIN 400 MG CAP PO SCH ×3 (09:43→21:02)
[2017-04-11] MEDS ORDERED: SODIUM FERRIC GLUCONAT/SUCROSE 125 MG in NS 100 ML IV ONE (09:46)
[2017-04-11] MEDS: ENOXAPARIN 80 MG/0.8 ML SYR SC SCH ×2 (09:47→21:05)
[2017-04-11] MEDS: MULTIVITAMINS 1 EACH TAB PO SCH (09:51)
[2017-04-11] MEDS: DOCUSATE SODIUM 100 MG CAP PO SCH ×2 (09:52→21:41)
--- NOTE | 2017-04-11 11:23 | PDHOMEO2F ---
Home Oxygen Face to Face Home Orders: I certify that a physician or a nurse practitioner or physician's human resources executive assistant has had a [id number] encounter with this patient on the date of this order due to the diagnosis listed, which relates to the primary reason the patient requires home oxygen. Alternative treatments have been tried, or considered, and deemed ineffective. It is anticipated that supplemental oxygen will result in improvement with treatment. Home oxygen qualifying diagnosis: History of pneumonia, anemia SpO2 on room air (%): 82 Frequency of home oxygen needed: continuous Home oxygen liters per minute: 2 Home oxygen delivery device: nasal cannula Concentrator: Yes E-tanks for mobility and back up: Yes If ordering portable O2, is the patient mobile in the home?: Yes I certify that, based on these findings, the home oxygen is medically necessary for this patient for the following length of time. Length of time home oxygen needed: 3 months (needs reeval in one month for ongoing need)
--- NOTE | 2017-04-11 11:51 | HOSPPROG ---
Hospitalist Progress Note Assessment/Plan: 61-year-old with chronic mental illness and inability to make her own healthcare decisions is admitted with symptomatic anemia with iron deficiency. Her sister is her medical power of inside tester and medical guardian. After evaluation it has been decided that she needs to have an upper and lower endoscopy to further evaluate the cause of her anemia and rule out possible malignancy, however the patient is reluctant to proceed with this and just wants to go home. It does not appear to be any acute bleeding during this admission. # severe symptomatic anemia with iron deficiency of unknown chronicity but suggestive of GI cause. Worry about possible malignancy. Her care has been complicated by the fact that she is unwilling to proceed with any testing despite the need and her medical power of inside tester has made the decision to proceed with testing. * No GI source of blood loss noted * Discussed with GI will not do further evaluation here in the hospital, moderate monitor her hemoglobin as an outpatient, possible further evaluation if she her hemoglobin drops again * Start iron orally and give 1 dose IV iron while in hospital # acute bilateral pulmonary embolism. Will continue heparin and monitor blood counts closely. This will need to be held prior to any procedures. * Continue Lovenox * Monitor overnight on Lovenox to make sure hemoglobin does not drop again * If stable can start Coumadin with bridge and sent home with nursing care to monitor closely # pleural effusion likely secondary to PE, asymptomatic # chronic mental illness, patient is not able to make her own healthcare decisions and her sister is her medical power of inside tester. Her home is in [place] and her caregiver has been present during the day here. * Poor compliance with medications and treatment secondary to her chronic mental illness * The continue to rely on her caregiver to help us convince the patient to take her medicines. # history of hip fracture, possible osteoporosis # recent history of pneumonia, status post treatment Subjective: Anxious to go home no chest pains mild abdominal pain post colonoscopy Objective: Vital Signs Temp Pulse Resp BP Pulse Ox 36.9 C 76 20 117/79 92 04/11/17 07:49 04/11/17 07:49 04/11/17 07:49 04/11/17 07:49 04/11/17 07:49 Laboratory Results 04/11/17 10:18 04/06/17 13:20 04/10/17 04/11/17 04/12/17 05:59 05:59 05:59 Intake Total 1250 970 Output Total 300 300 Balance 950 670 PT 15.2 SEC (12.0-15.0) H 04/02/17 04:12 INR 1.18 (0.83-1.16) H 04/02/17 04:12 - Physical Exam Constitutional: no apparent distress Eyes: PERRL Cardiovascular: regular rate and rhythym Respiratory: no respiratory distress Gastrointestinal: soft, non-tender abdomen, tenderness (Mild) Skin: warm, normal color Psychiatric: agitated, poor insight, poor judgement ICD10 Worksheet Patient Problems: Problems Problem Status Onset Hypoxemia Acute Anemia Acute
[2017-04-11] MEDS ORDERED: WARFARIN SODIUM 5 MG TAB PO ONE (16:00)
--- NOTE | 2017-04-11 16:03 | GDS ---
[f rep st] DISCHARGE SUMMARY DIAGNOSES: 1. Symptomatic iron deficiency anemia. 2. Chronic respiratory failure over the past month after diagnosis of pneumonia. Will need outpatien t followup. 3. Schizophrenia. 4. Abnormal EKG, likely secondary to severe anemia. 5. Left-sided small pleural effusion, asymptomatic. 6. Moderate pulmonary hypertension. RVSP in the 50s. 7. Recent pneumonia. 8. History of hip fracture. 9. Patient does not have decisional capacity, and her sister is her medical power of corporate associate attorney. PROCEDURES DONE: 1. Echocardiogram. Normal left ventricle with an EF of 74%. Mildly dilated right ventricle with a sy stolic pressure measuring 53. 2. CT angiogram. Large bilateral pulmonary emboli. /[id number]/MODL
[2017-04-11] MEDS: OLANZapine 10 MG TAB PO SCH (21:03)
[2017-04-11] MEDS: QUEtiapine FUMARATE 200 MG TAB PO SCH (21:03)
[2017-04-12 05:28] LABS: PLATELET COUNT 528 10^3/uL (150-400)
[2017-04-12 05:55] LABS: INR 1.04 (0.83-1.16); PROTIME(PATIENT) 13.8 SEC (12.0-15.0)
[2017-04-12] MEDS ORDERED: ENOXAPARIN 100 MG/ML SYR SC SCH (09:00)
[2017-04-12] MEDS: FERROUS SULFATE 325 MG TAB PO SCH (09:02)
[2017-04-12] MEDS: GABAPENTIN 400 MG CAP PO SCH ×2 (09:02→15:29)
[2017-04-12] MEDS: MULTIVITAMINS 1 EACH TAB PO SCH (09:02)
[2017-04-12] MEDS: DOCUSATE SODIUM 100 MG CAP PO SCH (09:02)
[2017-04-12] MEDS: PANTOPRAZOLE SODIUM 40 MG TAB PO SCH (09:02)
[2017-04-12] MEDS: OXcarbazepine 300 MG TAB PO SCH ×2 (09:02→15:29)
--- NOTE | 2017-04-12 11:40 | PDIAF ---
- Diagnosis Diagnosis: PE, anemia, schitzophrenia Code Status: Full Code - Medication Management Discharge Medications: Medications to Continue on Transfer Aspirin [Aspirin 81mg (*)] 81 mg PO DAILY 03/31/17 [Last Taken 03/31/17] Docusate Sodium [Colace 100 MG (*)] 100 mg PO BID 03/31/17 [Last Taken 03/31/17] Gabapentin [Neurontin 400 MG (*)] 400 mg PO TID 03/31/17 [Last Taken 03/31/17 19 :00] Multivitamins [Multivitamin (*)] 1 each PO DAILY 03/31/17 [Last Taken 03/31/17] OLANZapine [Zyprexa] 15 mg PO HS 03/31/17 [Last Taken 03/31/17] OXcarbazepine [Trileptal 300mg (*)] 300 mg PO TID 03/31/17 [Last Taken 03/31/17 19:00] QUEtiapine FUMARATE [Seroquel 200 mg (*)] 200 mg PO HS 03/31/17 [Last Taken ] Ferrous Sulfate [Ferrous Sulf 325 MG (*)] 325 mg PO DAILY #60 tab 04/11/17 [ Last Taken Unknown] Pantoprazole Sodium [Protonix 40mg (*)] 40 mg PO DAILY #30 tab 04/11/17 [Last Taken Unknown] Discharge Medications: Refer to the Discharge Home Medication list for PRN reason. - Orders Services needed: Home Care, Registered Nurse, Physical Therapy, Occupational Therapy Home Care Face to Face: I certify that this patient was under my care and that I had the required [id number] encounter meeting the encounter requirements on the discharge day. My findings support the fact that the patient is homebound as defined in Home Care Face to Face Continued: CMS Chapter 7 Medicare Benefits Manual 30.1.1 , The condition of the patient is such that there exists a normal inability to leave home and consequently, leaving home would require a considerable and taxing effort. Diet Recommendation: no restrictions on diet Diet Texture: Regular Texture Diet - Labs/Radiology CBC w/diff Date: 04/14/17 (weekly while on anticoagulation) PT/INR Date: 04/14/17 (3 times a week til INR stable 2-3) - Follow Up Care Current Providers and Referrals: [facility] [Other] - As per Instructions
[2017-04-12 11:58] VITALS: PULSE 78; RESP 24
--- NOTE | 2017-04-12 12:58 | ASMTCMCOM ---
CM Note CM Note Notes: ANDREW spoke w/ Jabari. Jabari reports that pt uses the [facility] pharmacy located, [address] [place] [address] in [place]. ANDREW notified TRAVIS Michele of this. CM available for changes. Date Signed: 04/12/2017 12:57 PM Electronically Signed By:PARTH Emerson
[2017-04-12] MEDS: EPOETIN ALFA 10,000 UNIT/ML VIAL SC SCH ×2 (13:01→14:46)
--- NOTE | 2017-04-12 13:53 | GDS ---
[f rep st] DISCHARGE SUMMARY DIAGNOSES: 1. Pulmonary embolism with acute respiratory failure. 2. Symptomatic iron deficiency anemia. 3. History of pneumonia. 4. Schizophrenia. 5. Abnormal EKG, likely secondary to severe anemia. 6. Left-sided pleural effusion. 7. Moderate pulmonary hypertension. 8. History of hip fracture. 9. The patient does not have decisional capacity and her sister is her medical power of corporate attorney. PROCEDURES DONE: 1. Echocardiogram: Normal EF and normal left ventricular function with a slightly dilated right ventricle and a systolic pressure of 53. 2. CT angiogram which showed large bilateral pulmonary emboli. 3. Abdominal CT was unremarkable. 4. Upper and lower endoscopy: No cause of bleeding found, large hiatal hernia. CONSULTATIONS: 1. GI, Dr. Joel Gonsalez and Buck Wynn. 2. General Counsel, Dr. Lavon Dixon. 3. Cardiology, Dr. Ramiro Perez. HOSPITAL COURSE: The patient is a 61-year-old with a history significant for schizophrenia. She does not have decisional capacity and lives with a caregiver in [place]. She was recently diagnosed with a pneumonia and treated at [facility]. Post hospitalization. She continued to have some hypoxia and was readmitted here for further evaluation. She was found to have large bilateral pulmonary emboli and iron deficiency anemia. She was placed on anticoagulation, had a fairly stable hematocrit; however, did get a transfusion of blood. She underwent the above procedures without an obvious bleeding source found, and at this time her sister, medical power of corporate attorney, would like to continue following this. Our recommendations are that she continue anticoagulation with close followup of her blood counts and transfusion as necessary. If she continues to drop her blood count, the next step would be to GI followup and possible capsule endoscopy to further look at her signs of bleeding. Here in the hospital, she did receive IV iron and 1 unit of packed red blood cells. Her schizophrenia was treated with her usual medications. They were not adjusted. However, I do believe she needs further psychiatric followup. Our psychiatric nurse saw her and will attempt to set her up with outpatient followup postdischarge. CONDITION ON DISCHARGE: Good. She is much more pleasant today and appropriate. She is afebrile. Heart rate 71, blood pressure 115/64. She is 88 % to 89% on room air. DISCHARGE MEDICATIONS: Please see the discharge medication form. Given her ongoing bleeding, she will be on Lovenox and Coumadin for easy reversal. She has a home nurse who will continue her Lovenox shots, as well as her Coumadin monitoring, and discontinue the Lovenox once her INR is between 2 or 3. FOLLOWUP CARE PLAN: She does have a Dr. at the [facility] who will receive her INRs while she is here. We will also follow hemoglobins every week to make sure that they are not falling. BILLING: Total time spent with patient on day of discharge and coordination of care is 45 minutes. Copy requested to: [facility] /[id number]/MODL [email or web address]
[2017-04-12 15:41] VITALS: BP 111/74; TEMP 98.4; O2SAT 88
[2017-04-12] MEDS ORDERED: WARFARIN SODIUM 5 MG TAB PO ONE (16:00)
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
== END 2017-04-12 15:55 | disposition home health service (06) | DRG 811 ==
LOC: F2W 20:50 → OBSVTOIN 04-01 20:46 → EEVIPCON 04-01 20:46 → F2N 04-02 16:08 → F3E 04-07 18:52
PROVIDERS: ADMIT Family Medicine; ATTEND Family Medicine
PROC: 30233N1 Transfusion of Nonautologous Red Blood Cells into Peripheral Vein, Percutaneous Approach (ICD-10-PCS; 2017-04-01)
PROC: 0DB98ZX Excision of Duodenum, Via Natural or Artificial Opening Endoscopic, Diagnostic (ICD-10-PCS; principal; 2017-04-10 12:24)
PROC: 0DB68ZX Excision of Stomach, Via Natural or Artificial Opening Endoscopic, Diagnostic (ICD-10-PCS; principal; 2017-04-10 12:24)
DX: D50.0 Iron deficiency anemia secondary to blood loss (chronic) (principal); I26.99 Other pulmonary embolism without acute cor pulmonale; J96.01 Acute respiratory failure with hypoxia; I27.20 Pulmonary hypertension, unspecified; K44.9 Diaphragmatic hernia without obstruction or gangrene; F20.9 Schizophrenia, unspecified; G80.9 Cerebral palsy, unspecified; R62.50 Unspecified lack of expected normal physiological development in childhood; Z87.81 Personal history of (healed) traumatic fracture; Z87.01 Personal history of pneumonia (recurrent)
CPT/HCPCS: 82607-90; 82947-QW; 97110-GP; 97116-GP; 97161-GP; 97530-GP; G0378; G8978-GP-CK; G8979-GP-CJ; J0885; J1650; J1940; J2704; J2916; P9016; Q9967

== ENCOUNTER → 2017-03-31 | Outpatient (CLI) | payer OTHER, MEDICAID | LOC: BHFA 10:00 | PROVIDERS: ATTEND Physician Assistant Medical | DX: R94.31 Abnormal electrocardiogram [ECG] [EKG] (principal); D64.9 Anemia, unspecified; R09.02 Hypoxemia ==

== ENCOUNTER → 2017-05-14 | Outpatient (CLI) | payer OTHER, MEDICAID | LOC: FIMAGING 12:06 | DX: N63.0 Unspecified lump in unspecified breast (principal); G80.9 Cerebral palsy, unspecified ==

== ENCOUNTER → 2017-05-28 | Outpatient (CLI) | payer OTHER, MEDICAID | LOC: FIMAGING 14:52 | DX: R92.8 Other abnormal and inconclusive findings on diagnostic imaging of breast (principal) ==